=== PATIENT | male | born 1975 | race Caucasian/White ===

== ENCOUNTER → 2019-01-20 | Outpatient (CLI) | payer BC ==
--- NOTE | 2019-01-20 15:14 | CT ---
EXAMINATION TYPE: CT angio head DATE OF EXAM: 01/20/2019 HISTORY: GRANGER X4 DAYS COMPARISON: NONE CT DLP: 2432.6 mGycm. Automated Exposure Control for Dose Reduction was Utilized. TECHNIQUE: CTA scan of the neck is performed with IV Contrast, patient injected with 200 mL of Isovu e 370, axial images are obtained, coronal and sagittal reformatted images are reviewed. Three-D recon structed images are created on an independent workstation and reviewed. FINDINGS: Carotid/Vascular Structures: The vertebrobasilar system appears patent. There is a conventional branc h pattern of the posterior circulation. [place] is intact and appears patent. There is no an eurysmal outpouching seen of the intracranial vasculature nor hemodynamically significant stenosis. Other: On the unenhanced portion of the exam there is no evidence of acute intracranial hemorrhage, m idline shift or mass effect. Ventricles and peripheral sulci are symmetric without significant atroph y. Bo[place]-white matter differentiation is maintained. No suspicious extra axial fluid collection. Orbit s are symmetric and lenses are in place. Soft tissues are grossly unremarkable. There appears intact. There is circumferential moderate right maxillary mucosal thickening and mild ethmoid mucosal thicke aravind. Remainder the paranasal sinuses and mastoid air cells are well aerated. IMPRESSION: 1. No evidence of acute intracranial hemorrhage, midline shift or mass effect. No occlusion, hemodyna mically significant stenosis, dissection, or aneurysmal outpouching in the intracranial vasculature. 2. Circumferential mucosal thickening of the right maxillary sinus is moderate with mild ethmoid muco davon thickening.
== END | disposition home or self-care (01) ==
LOC: RADCTMAIN 14:18
PROVIDERS: ATTEND Family Medicine
DX: J32.0 Chronic maxillary sinusitis (principal); J32.2 Chronic ethmoidal sinusitis
CPT/HCPCS: 70496; Q9967

== ENCOUNTER → 2020-08-28 | Outpatient (CLI) | payer OTHER ==
--- NOTE | 2020-08-28 13:07 | FL ---
EXAMINATION TYPE: FL barium swallow DATE OF EXAM: 08/28/2020 CLINICAL HISTORY: History of substernal dysphasia and heartburn, which has since subsided after start ing Pantoprazole. Patient denies any current abdominal symptoms. TECHNIQUE: A double contrast esophagram is performed utilizing air and barium. A total of 1 minute 4 seconds of fluoroscopic time was utilized during procedure. Total images obtained: 14. COMPARISON: None FINDINGS: The esophagus shows normal motility and emptying into the stomach. No mucosal normality. T iny sliding hiatal hernia. No evidence of stricture. Moderate spontaneous gastroesophageal reflux was seen during real time performance of this study. IMPRESSION: 1. Tiny hiatal hernia. 2. Moderate spontaneous gastroesophageal reflux.
== END | disposition home or self-care (01) ==
LOC: RADUSWWP 09:46
PROVIDERS: ATTEND Family Medicine
DX: K21.9 Gastro-esophageal reflux disease without esophagitis (principal); K44.9 Diaphragmatic hernia without obstruction or gangrene
CPT/HCPCS: 74220

== ENCOUNTER 2023-07-31 11:22 | Emergency (ER) | payer OTHER ==
[2023-07-31 12:21] VITALS: RESP 20; TEMP 97.9
[2023-07-31] MEDS ORDERED: LORazepam 2 MG/ML INJ IV PRN ×3 (12:42)
[2023-07-31] MEDS ORDERED: THIAMINE 100 MG/ML 2 ML VIAL IM STA (12:42)
[2023-07-31] MEDS ORDERED: SODIUM CHLORIDE 0.9% 1,000 ML IV ONE (12:43)
[2023-07-31] MEDS ORDERED: ONDANSETRON 4 MG/2 ML VIAL IVP STA (12:43)
[2023-07-31 13:09] LABS: Basophils % (A) 1 %; Eosinophils # (A) 0.1 k/uL (0-0.7); Eosinophils % (A) 2 %; HCT 43.4 % (39.0-53.0); HGB 14.4 gm/dL (13.0-17.5); Lymphocytes # (A) 0.9 k/uL (1.0-4.8); Lymphocytes % (A) 19 %; MCH 30.9 pg (25.0-35.0); MCHC 33.1 g/dL (31.0-37.0); MCV 93.4 fL (80.0-100.0); Mean Platelet Volume 8.4; Monocytes # (A) 0.4 k/uL (0-1.0); Monocytes % (A) 8 %; Neutrophils # (A) 3.4 k/uL (1.3-7.7); Neutrophils % (A) 69 %; Platelet Count 254 k/uL (150-450); RBC 4.65 m/uL (4.30-5.90); WBC 4.9 k/uL (3.8-10.6)
[2023-07-31 13:18] LABS: ALT 42 U/L (4-49); AST 48 U/L (17-59); African American GFR (CKD) >90 (>60 ml/min/1.73 sqM); Albumin 4.4 g/dL (3.5-5.0); Alcohol <10 mg/dL; Alkaline Phosphatase 95 U/L (38-126); Anion Gap 9 mmol/L; Blood Urea Nitrogen 6 mg/dL (9-20); Calcium 9.2 mg/dL (8.4-10.2); Carbon Dioxide 24 mmol/L (22-30); Chloride 104 mmol/L (98-107); Glucose 101 mg/dL (74-99); Magnesium 1.5 mg/dL (1.6-2.3); Non-African American GFR(CKD) >90 (>60 ml/min/1.73 sqM); Potassium 4.4 mmol/L (3.5-5.1); Sodium 137 mmol/L (137-145); Total Bilirubin 0.6 mg/dL (0.2-1.3); Total Protein 7.2 g/dL (6.3-8.2)
[2023-07-31 13:48] VITALS: BP 137/82; PULSE 92
--- NOTE | 2023-07-31 14:47 | ED ---
General Adult HPI - General Chief complaint: Recheck/Abnormal Lab/Rx Stated complaint: withdrawl sympt Time Seen by Provider: 07/31/23 11:50 Source: patient Mode of arrival: ambulatory Limitations: no limitations - History of Present Illness Initial comments: 47-year-old male presents emergency department reporting withdrawal symptoms. He reports that he has a history of alcohol abuse. He has been sober for the past 2 years. Over the past 4 days the patient began drinking again. He has drank several bottles of wine per night. His last drink was yesterday at 10 PM. He woke up this morning and felt tremulous. He was having nausea with vomiting . He has never gone through DTs before. No history of withdrawal seizures. He has never attended rehab. He denies any injuries while intoxicated. No chest pain or shortness of breath. No other alleviating, precipitating or modifying factors - Related Data Previous Rx's Medication Instructions Recorded chlordiazePOXIDE HCl [Librium] See Taper PO Q6HR 4 Days #15 07/31/23 capsule Allergies Allergy/AdvReac Type Severity Reaction Status Date / Time No Known Allergies Allergy Verified 07/31/23 11:52 Review of Systems ROS Statement: Those systems with pertinent positive or pertinent negative responses have been documented in the HPI. ROS Other: All systems not noted in ROS Statement are negative. Past Medical History Past Medical History: GERD/Reflux, Hyperlipidemia, Hypertension, Thyroid Dis order History of Any Multi-Drug Resistant Organisms: None Reported Past Surgical History: No Surgical Hx Reported Past Psychological History: Anxiety Smoking Status: Never smoker Past Alcohol Use History: Abuse Past Drug Use History: None Reported General Exam Limitations: no limitations General appearance: alert, in no apparent distress, other (Patient is visibly tremulous) Head exam: Present: atraumatic, normocephalic, normal inspection Eye exam: Present: normal appearance, PERRL, EOMI. Absent: scleral icterus, conjunctival injection, periorbital swelling ENT exam: Present: normal exam, mucous membranes moist Neck exam: Present: normal inspection. Absent: tenderness, meningismus, lymphadenopathy Respiratory exam: Present: normal lung sounds bilaterally. Absent: respiratory distress, wheezes, rales, rhonchi, stridor Cardiovascular Exam: Present: tachycardia, normal heart sounds. Absent: systolic murmur, diastolic murmur, rubs, gallop, clicks GI/Abdominal exam: Present: soft, normal bowel sounds. Absent: distended, tenderness, guarding, rebound, rigid Extremities exam: Present: normal inspection, full ROM, normal capillary refill. Absent: tenderness, pedal edema, joint swelling, calf tenderness Back exam: Present: normal inspection Neurological exam: Present: alert, oriented X3, CN II-XII intact Psychiatric exam: Present: normal affect, normal mood Skin exam: Present: warm, dry, intact, normal color. Absent: rash Course Vital Signs 07/31/23 07/31/23 07/31/23 11:48 12:16 13:44 Temperature 98.3 F 97.9 F Pulse Rate 118 H 90 92 Respiratory 22 20 20 Rate Blood Pressure 126/87 129/113 137/82 O2 Sat by Pulse 99 97 95 Oximetry Medical Decision Making - Medical Decision Making Was pt. sent in by a medical professional or institution (SHANI Lopez, [employer]OR, urgent care, hospital, or intermediate...) When possible be specific @ -No Did you speak to anyone other than the patient for history (EMS, parent, family, police, friend...)? What history was obtained from this source @ -No Did you review nursing and triage notes (agree or disagree)? Why? @ -I reviewed and agree with nursing and triage notes Were old charts reviewed (outside hosp., previous admission, EMS record, old EKG, old radiological studies, urgent care reports/EKG's, intermediate records)? Report findings @ -No old charts were reviewed Differential Diagnosis (chest pain, altered mental status, abdominal pain women, abdominal pain men, vaginal bleeding, weakness, fever, dyspnea, syncope, headache, dizziness, GI bleed, back pain, seizure, CVA, palpatations, mental health, musculoskeletal)? @ -Alcohol intoxication, alcohol withdrawal, DTs EKG interpreted by me (3pts min.). @ -As above X-rays interpreted by me (1pt min.). @ -None done CT interpreted by me (1pt min.). @ -None done U/S interpreted by me (1pt. min.). @ -None done What testing was considered but not performed or refused? (CT, X-rays, U/S, labs)? Why? @ -None What meds were considered but not given or refused? Why? @ -[facility] protocol however patient will not be admitted to the hospital Did you discuss the management of the patient with other professionals (pr ofessionals i.e. , PA, [employer] SUPERVISOR, lab, RT, psych nurse, social service technician, screen printing press operator, teacher, sales officer, pillowcase cutter)? Give summary @ -No Was smoking cessation discussed for >3mins.? @ -No Was critical care preformed (if so, how long)? @ -No Were there social determinants of health that impacted care today? How? (Homelessness, low income, unemployed, alcoholism, drug addiction, transport ation, low edu. Level, literacy, decrease access to med. care, [facility], rehab)? @ -No Was there de-escalation of care discussed even if they declined (Discuss DNR or withdrawal of care, Hospice)? DNR status @ -No What co-morbidities impacted this encounter? (DM, HTN, Smoking, COPD, CAD, Cancer, CVA, ARF, Chemo, Hep., AIDS, mental health diagnosis, sleep apnea, morbid obesity)? @ -Alcohol abuse Was patient admitted / discharged? Hospital course, mention meds given and route, prescriptions, significant lab abnormalities, going to OR and other pertinent info. @ -Upon arrival patient was placed into room 2. Thorough history and physical exam was performed. Patient visibly tremulous. He was given 1 mg of Ativan. Laboratory studies are conducted. He is reevaluated and appears to be resting comfortably. I did discuss the diagnosis, differential treatment options. Recommend that the patient be admitted to the hospital for alcohol withdrawal however he wants to go home at this time. He is made aware of the risks which include permanent's ability and . Patient still agreeable to leaving with these risks. He will be placed on Librium. Instructed to take the medications as directed for withdrawal symptoms. Return for any new or worsening symptoms. Patient was agreeable to this plan and is discharged in stable condition Undiagnosed new problem with uncertain prognosis? @ -No Drug Therapy requiring intensive monitoring for toxicity (Heparin, Nitro, Insulin, Cardizem)? @ -No Were any procedures done? @ -No Diagnosis/symptom? @ -Acute alcohol withdrawal Acute, or Chronic, or Acute on Chronic? @ -Acute Uncomplicated (without systemic symptoms) or Complicated (systemic symptoms)? @ -Complicated Side effects of treatment? @ -No Exacerbation, Progression, or Severe Exacerbation? @ -No Poses a threat to life or bodily function? How? (Chest pain, [place], [place], pneumonia, PE, COPD, DKA, ARF, appy, cholecystitis, CVA, Diverticulitis, Homicidal, Suicidal, threat to staff... and all critical care pts) @ -Yes patient is aware that alcohol withdrawal can be life-threatening and lead to - Lab Data Result diagrams: 07/31/23 12:51 07/31/23 12:51 Lab Results 07/31/23 07/31/23 Range/Units 12:51 12:51 WBC 4.9 (3.8-10.6) k/uL RBC 4.65 (4.30-5.90) m/uL Hgb 14.4 (13.0-17.5) gm/dL Hct 43.4 (39.0-53.0) % MCV 93.4 (80.0-100.0) fL MCH 30.9 (25.0-35.0) pg MCHC 33.1 (31.0-37.0) g/dL RDW 14.0 (11.5-15.5) % Plt Count 254 (150-450) k/uL MPV 8.4 Neutrophils % 69 % Lymphocytes % 19 % Monocytes % 8 % Eosinophils % 2 % Basophils % 1 % Neutrophils # 3.4 (1.3-7.7) k/uL Lymphocytes # 0.9 L (1.0-4.8) k/uL Monocytes # 0.4 (0-1.0) k/uL Eosinophils # 0.1 (0-0.7) k/uL Basophils # 0.0 (0-0.2) k/uL Sodium 137 (137-145) mmol/L Potassium 4.4 (3.5-5.1) mmol/L Chloride 104 (98-107) mmol/L Carbon Dioxide 24 (22-30) mmol/L Anion Gap 9 mmol/L BUN 6 L (9-20) mg/dL Creatinine 0.53 L (0.66-1.25) mg/dL Est GFR (CKD-EPI)AfAm >90 (>60 ml/min/1.73 sqM) Est GFR (CKD-EPI)NonAf >90 (>60 ml/min/1.73 sqM) Glucose 101 H (74-99) mg/dL Calcium 9.2 (8.4-10.2) mg/dL Magnesium 1.5 L (1.6-2.3) mg/dL Total Bilirubin 0.6 (0.2-1.3) mg/dL AST 48 (17-59) U/L ALT 42 (4-49) U/L Alkaline Phosphatase 95 (38-126) U/L Total Protein 7.2 (6.3-8.2) g/dL Albumin 4.4 (3.5-5.0) g/dL Serum Alcohol <10 mg/dL Disposition Clinical Impression: Alcohol withdrawal Disposition: HOME SELF-CARE Condition: Stable Instructions (If sedation given, give patient instructions): Alcohol Withdrawal (ED) Additional Instructions: Take the medications as directed. Follow up with your doctor and return for any new or worsening symptoms Prescriptions: chlordiazePOXIDE HCl [Librium] See Taper PO Q6HR 4 Days #15 capsule Is patient prescribed a controlled substance at d/c from ED?: No Referrals: Araceli Reno DO [Primary Care Provider] - 1-2 days Time of Disposition: 14:58
[2023-08-01] MEDS ORDERED: THIAMINE 100 MG TAB PO SCH (09:00)
== END 2023-07-31 15:08 | disposition home or self-care (01) ==
LOC: EC 11:22
DX: F10.130 Alcohol abuse with withdrawal, uncomplicated (principal); I10 Essential (primary) hypertension; F41.9 Anxiety disorder, unspecified; Y90.0 Blood alcohol level of less than 20 mg/100 ml
CPT/HCPCS: 36415; 80053; 83735; 85025; 99284; 96374; 96375; 96361; 96372; G0480; J2060; J3411; J2405; 80320

== ENCOUNTER 2024-02-12 11:44 | Emergency (ER) | payer OTHER ==
--- NOTE | 2024-02-12 12:18 | ED ---
Chest Pain HPI - General Chief Complaint: Chest Pain Stated Complaint: Chest pain/Sob Time Seen by Provider: 02/12/24 12:01 Source: patient, RN notes reviewed Mode of arrival: ambulatory Limitations: no limitations - History of Present Illness Initial Comments: This is a 48 year old male who presents to the emergency department for chest pain. Patient states that this morning he had a syncopal episode around 8 AM. He did have a syncopal episode a couple of years ago, but nothing recently. Unsure how long he may have been unconscious for. Shortly after that he started to develop chest pain/pressure. This has since been persistent and seems to be getting worse. He has minor shortness of breath. Denies any radiation of pain. He has a history of a pulmonary embolus about 5 years ago. He is still taking Xarelto. Denies any personal or family history of cardiac issues. MD Complaint: chest pain - Related Data Home Medications Medication Instructions Recorded Confirmed Levothyroxine Sodium [Synthroid] 75 mcg PO DAILY 02/12/24 02/12/24 Ondansetron Odt [Zofran Odt] 4 mg PO Q12HR PRN 02/12/24 02/12/24 Pantoprazole Sodium [Protonix] 40 mg PO DAILY 02/12/24 02/12/24 Rivaroxaban [Xarelto] 20 mg PO DAILY@1200 02/12/24 02/12/24 Vilazodone HCl [Viibryd] 10 mg PO DAILY 02/12/24 02/12/24 busPIRone HCL 10 mg PO TID PRN 02/12/24 02/12/24 lisinopriL [Zestril] 10 mg PO DAILY 02/12/24 02/12/24 Previous Rx's Medication Instructions Recorded Ibuprofen [Motrin] 800 mg PO Q8H PRN #30 tab 02/12/24 methocarbamoL [Robaxin-750] 1,500 mg PO TID PRN #30 tab 02/12/24 Allergies Allergy/AdvReac Type Severity Reaction Status Date / Time No Known Allergies Allergy Verified 02/12/24 15:52 Review of Systems ROS Statement: Those systems with pertinent positive or pertinent negative responses have been documented in the HPI. ROS Other: All systems not noted in ROS Statement are negative. Past Medical History Past Medical History: GERD/Reflux, Hyperlipidemia, Hypertension, Thyroid Disorder History of Any Multi-Drug Resistant Organisms: None Reported Past Surgical History: No Surgical Hx Reported Past Psychological History: Anxiety Smoking Status: Never smoker Past Alcohol Use History: Abuse Past Drug Use History: None Reported General Exam Limitations: no limitations General appearance: alert, anxious Head exam: Present: atraumatic, normocephalic, normal inspection Respiratory exam: Present: normal lung sounds bilaterally. Absent: respiratory distress, wheezes, rales, rhonchi, stridor Cardiovascular Exam: Present: normal rhythm, tachycardia GI/Abdominal exam: Present: soft, normal bowel sounds. Absent: distended, tenderness, guarding, rebound, rigid Neurological exam: Present: alert, oriented X3, CN II-XII intact Psychiatric exam: Present: normal affect, normal mood Skin exam: Present: warm, dry, intact, normal color. Absent: rash Course Vital Signs 02/12/24 02/12/24 02/12/24 11:54 12:52 14:16 Temperature 98.4 F Pulse Rate 114 H 105 H 98 Respiratory 22 18 18 Rate Blood Pressure 133/88 132/69 109/68 O2 Sat by Pulse 99 99 97 Oximetry 02/12/24 02/12/24 15:00 17:10 Temperature Pulse Rate 80 80 Respiratory 18 14 Rate Blood Pressure 124/71 127/86 O2 Sat by Pulse 98 97 Oximetry Chest Pain MDM - MDM This is a 48 year old male who presents to the emergency department for chest pain. Was pt. sent in by a medical professional or institution? @ -No Did you speak to anyone other than the patient for history? @ -No Did you review nursing and triage notes? @ -Yes, and I agree, it is accurate with regards to the patient's symptoms. Were old charts reviewed? @ -No Differential Diagnosis? @ -Differential Chest Pain: Stable Angina, Unstable Angina, STEMI, NSTEMI Aortic Dissection, Pneumothorax, Musculoskeletal, Esophageal Spasm GERD, Cholecystitis, Pancreatitis, Zoster, this is not meant to be an all-inclusive list. EKG interpreted by me (3pts min.)? @ -EKG interpreted by me demonstrating the following: Sinus tachycardia. Ventricular rate 112 bpm, IL interval 136 ms, QRS duration 76 ms, QTc 398 ms. X-rays interpreted by me (1pt min.)? @ -Chest x-ray obtained, my interpretation identifies no localized consolidations or infiltrates. CT interpreted by me (1pt min.)? @ -Not obtained U/S interpreted by me (1pt. min.)? @ -Not obtained What testing was considered but not performed? (CT, X-rays, U/S, labs)? Why? @ -None What meds were considered but not given? Why? @ -None Did you discuss the management of the patient with other professionals? @ -No Did you reconcile home meds? @ -No Was smoking cessation discussed for >3mins.? @ -No Was critical care preformed (if so, how long)? @ -No Were there social determinants of health that impacted care today? How? (Homelessness, low income, unemployed, alcoholism, drug addiction, transportation, low edu. Level, literacy, decrease access to med. care, snf, rehab)? @ -No Was there de-escalation of care discussed even if they declined? (Discuss DNR or withdrawal of care, Hospice)? @ -No What co-morbidities impacted this encounter? (DM, HTN, Smoking, COPD, CAD, Cancer, CVA, Hep., AIDS, mental health diagnosis, sleep apnea, morbid obesity)? @ -HLD, HTN, alcohol abuse Was patient admitted / discharged? @ -Discharged. Lab work fairly unremarkable including a negative troponin and negative D-dimer. He did have a slightly low magnesium of 1.5 and was given 400 mg of magnesium oxide. Patient was shaking quite a bit on arrival, and he states that this is due to anxiety with the chest pain. He did have an alcohol level of 39, but states that this was not related to withdrawals. He was given a dose of nitroglycerin and aspirin without any relief in symptoms. He was s ubsequently given Toradol and Ativan, which he felt was beneficial. Repeat troponin obtained after 3 hours, which also remained negative. Patient was then comfortable with discharge home. Rx for Ibuprofen and Robaxin provided with dosing instructions reviewed. Patient discharged home in stable condition and advised to have close follow-up with his primary care provider. Undiagnosed new problem with uncertain prognosis? @ -None Drug Therapy requiring intensive monitoring for toxicity (Heparin, Nitro, Insulin, Cardizem)? @ -None Were any procedures done? @ -None Diagnosis/symptom? @ -Chest pain Acute, or Chronic, or Acute on Chronic? @ -Acute Uncomplicated (without systemic symptoms) or Complicated (systemic symptoms)? @ -Uncomplicated Side effects of treatment? @ -None Exacerbation, Progression, or Severe Exacerbation] @ -Not applicable Poses a threat to life or bodily function? @ -This will depend on the cause of his pain. Return precautions reviewed in depth, the patient is instructed to return to the emergency department with any new, worsening, or concerning symptoms. Patient verbalized understanding. This case was discussed in detail with the attending ED physician, Dr. Kumar. Presentation, findings, and treatment plan discussed in detail as well. Disposition Clinical Impression: Chest pain Disposition: HOME SELF-CARE Instructions (If sedation given, give patient instructions): Chest Pain (ED), Noncardiac Chest Pain (ED) Additional Instructions: Return to the emergency department with any new, worsening, or concerning symptoms. Alternate with Ibuprofen and Tylenol as needed for pain relief. You can take the Robaxin as 1-2 tablets up to 3-4 times daily. Be aware that this may make you drowsy. Follow up with your primary care provider in 1-2 days. Prescriptions: Ibuprofen [Motrin] 800 mg PO Q8H PRN #30 tab PRN Reason: Pain methocarbamoL [Robaxin-750] 1,500 mg PO TID PRN #30 tab PRN Reason: Pain Is patient prescribed a controlled substance at d/c from ED?: No Referrals: Araceli Reno DO [Primary Care Provider] - 1-2 days
[2024-02-12 12:22] LABS: Basophils # (A) 0.1 k/uL (0-0.2); Basophils % (A) 1 %; Eosinophils # (A) 0.2 k/uL (0-0.7); Eosinophils % (A) 2 %; HCT 44.9 % (39.0-53.0); HGB 14.6 gm/dL (13.0-17.5); Lymphocytes # (A) 1.5 k/uL (1.0-4.8); Lymphocytes % (A) 17 %; MCH 30.4 pg (25.0-35.0); MCHC 32.6 g/dL (31.0-37.0); MCV 93.2 fL (80.0-100.0); Mean Platelet Volume 8.1; Monocytes # (A) 0.4 k/uL (0-1.0); Monocytes % (A) 5 %; Neutrophils # (A) 6.2 k/uL (1.3-7.7); Neutrophils % (A) 73 %; Platelet Count 444 k/uL (150-450); RBC 4.81 m/uL (4.30-5.90); RDW 13.5 % (11.5-15.5); WBC 8.5 k/uL (3.8-10.6)
[2024-02-12 12:37] LABS: ALT 36 U/L (4-49); AST 30 U/L (17-59); African American GFR (CKD) >90 (>60 ml/min/1.73 sqM); Albumin 4.8 g/dL (3.5-5.0); Alcohol 39 mg/dL; Alkaline Phosphatase 76 U/L (38-126); Anion Gap 17 mmol/L; Blood Urea Nitrogen 9 mg/dL (9-20); Calcium 9.3 mg/dL (8.4-10.2); Carbon Dioxide 17 mmol/L (22-30); Chloride 107 mmol/L (98-107); Glucose 106 mg/dL (74-99); Magnesium 1.5 mg/dL (1.6-2.3); Non-African American GFR(CKD) >90 (>60 ml/min/1.73 sqM); Potassium 4.3 mmol/L (3.5-5.1); Sodium 141 mmol/L (137-145); Total Bilirubin 0.4 mg/dL (0.2-1.3); Total Protein 7.6 g/dL (6.3-8.2)
[2024-02-12 12:39] LABS: Partial Thromboplastin Time 24.8 sec (22.0-30.0)
[2024-02-12] MEDS: NITROGLYCERIN SL TABS 0.4 MG TAB SUBLINGUAL STA (12:44)
[2024-02-12] MEDS: ASPIRIN 81 MG PO STA (12:45)
[2024-02-12] MEDS: ONDANSETRON 4 MG/2 ML VIAL IVP STA (12:46)
[2024-02-12] MEDS: SODIUM CHLORIDE 0.9% 1,000 ML IV STA (12:47)
[2024-02-12] MEDS: MAGNESIUM OXIDE 400 MG TAB PO STA (13:00)
[2024-02-12] MEDS: KETOROLAC 15 MG/ML 1 ML VIAL IVP STA ×2 (13:01→16:09)
[2024-02-12] MEDS: LORazepam 2 MG/ML INJ IV STA ×2 (13:02→17:00)
[2024-02-12 13:10] VITALS: RESP 18
--- NOTE | 2024-02-12 13:17 | XR ---
EXAMINATION TYPE: XR chest 2V DATE OF EXAM: 02/12/2024 COMPARISON: 10/18/2013 INDICATION: Chest pain TECHNIQUE: Frontal and lateral views of the chest are obtained. FINDINGS: The heart size is normal. The pulmonary vasculature is normal. The lungs are clear. IMPRESSION: 1. No acute pulmonary process.
[2024-02-12] MEDS: ORPHENADRINE 30 MG/ML 2 ML VIAL IVP STA (16:11)
[2024-02-12] MEDS: MORPHINE SULFATE 2 MG/ML SYRINGE IVP STA (17:10)
[2024-02-12 17:40] VITALS: BP 134/82; PULSE 72; TEMP 98.2
== END 2024-02-12 17:50 | disposition home or self-care (01) ==
LOC: EC 11:44
DX: R07.89 Other chest pain (principal)
CPT/HCPCS: 36415; 93005; 85379; 80053; 83735; 84484; 85025; 85610; 85730; 71046; 99285; 96374; 96375 ×3; 96376 ×3; 96361; G0480; J2060; J2360; J2405; J2270; J1885; 80320

== ENCOUNTER 2024-02-23 11:21 | Observation (INO) | payer OTHER ==
[2024-02-23] MEDS ORDERED: LORazepam 2 MG/ML INJ IV PRN ×3 (11:50→16:32)
--- NOTE | 2024-02-23 11:54 | ED ---
General Adult HPI - General Chief complaint: Alcohol Stated complaint: Withdrawal Time Seen by Provider: 02/23/24 11:31 Source: patient Mode of arrival: ambulatory Limitations: no limitations - History of Present Illness Initial comments: Dictation was produced using [employer] dictation software. please excuse any grammatical, word or spelling errors. Chief Complaint: 48-year-old alcoholic male presents to the ER for alcohol withdrawals History of Present Illness: Patient 48-year-old male presents emergency department for alcohol withdrawals. Patient states he relapsed recently for the last several weeks has been drinking 3-4 bottles of wine. Patient has history of alcohol dependence. He has had intermittent episodes of sobriety however he states that he relapsed recently. Patient last alcohol intake was 11 PM last night. States that this morning he woke up feeling really shaky. Denies any ICU admissions for alcohol withdrawal in the past. No history of seizures The ROS documented in this emergency department record has been reviewed and confirmed by me. Those systems with pertinent positive or negative responses have been documented in the HPI. All other systems are other negative and/or noncontributory. - Related Data Home Medications Medication Instructions Recorded Confirmed Levothyroxine Sodium [Synthroid] 75 mcg PO HS 02/12/24 02/23/24 Ondansetron Odt [Zofran Odt] 4 mg PO Q12HR PRN 02/12/24 02/23/24 Pantoprazole Sodium [Protonix] 40 mg PO DAILY 02/12/24 02/23/24 Rivaroxaban [Xarelto] 20 mg PO DAILY@1200 02/12/24 02/23/24 Vilazodone HCl [Viibryd] 10 mg PO DAILY 02/12/24 02/23/24 busPIRone HCL 10 mg PO TID PRN 02/12/24 02/23/24 lisinopriL [Zestril] 10 mg PO DAILY 02/12/24 02/23/24 Sildenafil Citrate [Sildenafil] 60 - 100 mg PO DAILY PRN MDD 100mg 02/23/24 02/23/24 Previous Rx's Medication Instructions Recorded Ibuprofen [Motrin] 800 mg PO Q8H PRN #30 tab 02/12/24 methocarbamoL [Robaxin-750] 1,500 mg PO TID PRN #30 tab 02/12/24 Allergies Allergy/AdvReac Type Severity Reaction Status Date / Time No Known Allergies Allergy Verified 02/23/24 12:40 Review of Systems ROS Statement: Those systems with pertinent positive or pertinent negative responses have been documented in the HPI. ROS Other: All systems not noted in ROS Statement are negative. Past Medical History Past Medical History: GERD/Reflux, Hyperlipidemia, Hypertension, Thyroid Disorder History of Any Multi-Drug Resistant Organisms: None Reported Past Surgical History: No Surgical Hx Reported Past Psychological History: Anxiety Smoking Status: Never smoker Past Alcohol Use History: Abuse Past Drug Use History: None Reported General Exam - General Exam Comments Initial Comments: PHYSICAL EXAM: General Impression: Alert and oriented x3, tremulous HEENT: Normocephalic atraumatic, extra-ocular movements intact, pupils equal and reactive to light bilaterally, mucous membranes moist. Cardiovascular: Heart regular rate and rhythm Chest: Able to complete full sentences, no retractions, no tachypnea Abdomen: abdomen soft, non-tender, non-distended, no organomegaly Musculoskeletal: Pulses present and equal in all extremities, no peripheral edema Motor: no focal deficits noted Neurological: CN II-XII grossly intact, no focal motor or sensory deficits noted Skin: Intact with no visualized rashes Psych: Anxious Limitations: no limitations Course Vital Signs 02/23/24 11:27 Temperature 98.5 F Pulse Rate 105 H Respiratory 18 Rate Blood Pressure 139/86 O2 Sat by Pulse 96 Oximetry Medical Decision Making - Medical Decision Making Was pt. sent in by a medical professional or institution (SHANI Lopez, REGISTERED DENTAL HYGIENIST, urgent care, hospital, or halfway...) When possible be specific @ -No Did you speak to anyone other than the patient for history (EMS, parent, family, police, friend...)? What history was obtained from this source @ -No Did you review nursing and triage notes (agree or disagree)? Why? @ -I reviewed and agree with nursing and triage notes Were old charts reviewed (outside hosp., previous admission, EMS record, old EKG, old radiological studies, urgent care reports/EKG's, halfway records)? Report findings @ -No old charts were reviewed Differential Diagnosis (chest pain, altered mental status, abdominal pain women, abdominal pain men, vaginal bleeding, musculoskeletal, weakness, fever, dyspnea, syncope, headache, dizziness, GI bleed, back pain, seizure, CVA, palpatations, mental health)? @ -Not applicable EKG interpreted by me (3pts min.). @ -None done X-rays interpreted by me (1pt min.). @ -None done CT interpreted by me (1pt min.). @ -None done U/S interpreted by me (1pt. min.). @ -None done What testing was considered but not performed or refused? (CT, X-rays, U/S, labs)? Why? @ -None What meds were considered but not given or refused? Why? @ -None Did you discuss the management of the patient with other professionals (professionals i.e. , PA, REGISTERED DENTAL HYGIENIST, lab, RT, psych nurse, director social service, veterinary toxicologist, teacher, safety patrol officer, shelter case manager)? Give summary @ -Case discussed with hospitalist for admission Was smoking cessation discussed for >3mins.? @ -No Was critical care preformed (if so, how long)? @ -No Were there social determinants of health that impacted care today? How? (Homelessness, low income, unemployed, alcoholism, drug addiction, transportation, low edu. Level, literacy, decrease access to med. care, shelter, rehab)? @ -No Was there de-escalation of care discussed even if they declined (Discuss DNR or withdrawal of care, Hospice)? DNR status @ -No What co-morbidities impacted this encounter? (DM, HTN, Smoking, COPD, CAD, Cancer, CVA, ARF, Chemo, Hep., AIDS, mental health diagnosis, sleep apnea, morbid obesity)? @ -None Was patient admitted / discharged? Hospital course, mention meds given and route, prescriptions, significant lab abnormalities, going to OR and other pertinent info. @ -48-year-old male presents emergency department for alcohol withdrawal. Vital signs upon arrival shows tachycardia 105, rest of vital signs within acceptable limits. Patient extremely tremulous and anxious at the bedside. Laboratory evaluation obtained. Labs are within acceptable limits. Patient given Ativan will be admitted for inpatient treatment of alcohol withdrawal. Undiagnosed new problem with uncertain prognosis? @ -No Drug Therapy requiring intensive monitoring for toxicity (Heparin, Nitro, Insulin, Cardizem)? @ -No Were any procedures done? @ -No Diagnosis/symptom? Acute, or Chronic, or Acute on Chronic? Uncomplicated (without systemic symptoms) or Complicated (systemic symptoms)? @ -Alcohol withdrawal Side effects of treatment? @ -No Exacerbation, Progression, or Severe Exacerbation? @ -No Poses a threat to life or bodily function? How? (Chest pain, USA, MD, pneumonia, PE, COPD, DKA, ARF, appy, cholecystitis, CVA, Diverticulitis, Homicidal, Suicidal, threat to staff... and all critical care pts) @ -No - Lab Data Result diagrams: 02/23/24 12:23 02/23/24 12: Lab Results 02/23/24 02/23/24 Range/Units 12:23 12:23 WBC 7.0 (3.8-10.6) k/uL RBC 4.94 (4.30-5.90) m/uL Hgb 15.0 (13.0-17.5) gm/dL Hct 45.5 (39.0-53.0) % MCV 92.2 (80.0-100.0) fL MCH 30.4 (25.0-35.0) pg MCHC 33.0 (31.0-37.0) g/dL RDW 13.6 (11.5-15.5) % Plt Count 335 (150-450) k/uL MPV 8.5 Neutrophils % 71 % Lymphocytes % 16 % Monocytes % 7 % Eosinophils % 2 % Basophils % 1 % Neutrophils # 5.0 (1.3-7.7) k/uL Lymphocytes # 1.1 (1.0-4.8) k/uL Monocytes # 0.5 (0-1.0) k/uL Eosinophils # 0.2 (0-0.7) k/uL Basophils # 0.1 (0-0.2) k/uL Sodium 140 (137-145) mmol/L Potassium 5.3 H (3.5-5.1) mmol/L Chloride 109 H (98-107) mmol/L Carbon Dioxide 20 L (22-30) mmol/L Anion Gap 11 mmol/L BUN 22 H (9-20) mg/dL Creatinine 0.66 (0.66-1.25) mg/dL Est GFR (CKD-EPI)AfAm >90 (>60 ml/min/1.73 sqM) Est GFR (CKD-EPI)NonAf >90 (>60 ml/min/1.73 sqM) Glucose 116 H (74-99) mg/dL Calcium 9.9 (8.4-10.2) mg/dL Magnesium 1.8 (1.6-2.3) mg/dL Serum Alcohol <10 mg/dL Disposition Clinical Impression: Alcohol withdrawal syndrome Disposition: ADMITTED IP TO THIS HOSP Condition: Fair Referrals: Araceli Reno DO [Primary Care Provider] - 1-2 days Decision Time: 13:39
[2024-02-23] MEDS: LORazepam 2 MG/ML INJ IV STA (12:19)
[2024-02-23] MEDS: THIAMINE 100 MG/ML 2 ML VIAL IM STA (12:19)
[2024-02-23 12:30] LABS: Basophils # (A) 0.1 k/uL (0-0.2); Basophils % (A) 1 %; Eosinophils # (A) 0.2 k/uL (0-0.7); Eosinophils % (A) 2 %; HCT 45.5 % (39.0-53.0); Lymphocytes # (A) 1.1 k/uL (1.0-4.8); Lymphocytes % (A) 16 %; MCH 30.4 pg (25.0-35.0); MCV 92.2 fL (80.0-100.0); Mean Platelet Volume 8.5; Monocytes # (A) 0.5 k/uL (0-1.0); Monocytes % (A) 7 %; Neutrophils % (A) 71 %; Platelet Count 335 k/uL (150-450); RBC 4.94 m/uL (4.30-5.90); RDW 13.6 % (11.5-15.5)
[2024-02-23 12:42] LABS: African American GFR (CKD) >90 (>60 ml/min/1.73 sqM); Alcohol <10 mg/dL; Anion Gap 11 mmol/L; Blood Urea Nitrogen 22 mg/dL (9-20); Calcium 9.9 mg/dL (8.4-10.2); Carbon Dioxide 20 mmol/L (22-30); Chloride 109 mmol/L (98-107); Glucose 116 mg/dL (74-99); Magnesium 1.8 mg/dL (1.6-2.3); Non-African American GFR(CKD) >90 (>60 ml/min/1.73 sqM); Potassium 5.3 mmol/L (3.5-5.1); Sodium 140 mmol/L (137-145)
[2024-02-23] MEDS ORDERED: NALOXONE 0.4 MG/ML 1 ML VIAL IV PRN (13:30)
[2024-02-23] MEDS: SODIUM CHLORIDE 0.9% 1,000 ML IV SCH (13:57)
[2024-02-23] MEDS: LORazepam 2 MG/ML INJ IV PRN (16:51)
[2024-02-24] MEDS: ONDANSETRON 4 MG/2 ML VIAL IVP PRN (07:59)
[2024-02-24 08:05] VITALS: RESP 20
[2024-02-24] MEDS: THIAMINE 100 MG TAB PO SCH (09:23)
[2024-02-24] MEDS: FOLIC ACID 1 MG TAB PO SCH (09:24)
[2024-02-24] MEDS: PANTOPRAZOLE 40 MG/10 ML VIAL IVP SCH (09:36)
[2024-02-24] MEDS: Vilazodone Hcl [Viibryd] 10 MG Tablet PO SCH (09:42)
[2024-02-24 09:43] LABS: African American GFR (CKD) >90 (>60 ml/min/1.73 sqM); Anion Gap 5 mmol/L; Blood Urea Nitrogen 15 mg/dL (9-20); Carbon Dioxide 24 mmol/L (22-30); Chloride 106 mmol/L (98-107); Glucose 130 mg/dL (74-99); Magnesium 1.9 mg/dL (1.6-2.3); Non-African American GFR(CKD) >90 (>60 ml/min/1.73 sqM); Potassium 4.5 mmol/L (3.5-5.1); Sodium 135 mmol/L (137-145)
[2024-02-24] MEDS: lisinopriL 10 MG TAB PO SCH (09:45)
[2024-02-24] MEDS: busPIRone HCl 10 MG TAB PO PRN (09:45)
[2024-02-24] MEDS: RIVAROXABAN 20 MG TAB PO SCH (11:30)
[2024-02-24 13:40] VITALS: BP 144/84; PULSE 69; TEMP 98.1
--- NOTE | 2024-02-24 14:01 | P.HPIM ---
History of Present Illness H&P Date: 02/24/24 Chief Complaint: Alcohol withdrawal History and Physical and Discharge Summary: This is a 48-year-old gentleman presented to the ER with complaints of alcohol withdrawal accompanied by shakes, sweats, hot flashes, nausea. Denies seizures or seizure history. Reports he relapsed, had quit alcohol about 3-1/2 years ago. Previously attempted naltrexone, Antabuse. Over the last 6 days he has been drinking 3-4 bottles of wine daily. 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 Afebrile, normal WBC, hematology panel unremarkable. Electrolytes, renal function within normal limits. Serum alcohol level less than 10. Denies chest pain, palpitations or shortness of breath. Received IV fluid hydration, CIWA protocol initiated in the ER. Review of Systems ROS Statement: Those systems with pertinent positive or pertinent negative responses have been documented in the HPI. ROS Other: All systems not noted in ROS Statement are negative. Past Medical History Past Medical History: GERD/Reflux, Hyperlipidemia, Hypertension, Thyroid Disorder History of Any Multi-Drug Resistant Organisms: None Reported Past Surgical History: No Surgical Hx Reported Past Psychological History: Anxiety Smoking Status: Former smoker Past Alcohol Use History: Abuse Past Drug Use History: None Reported Medications and Allergies Home Medications Medication Instructions Recorded Confirmed Type Ibuprofen [Motrin] 800 mg PO Q8H PRN #30 tab 02/12/24 02/23/24 Rx Levothyroxine Sodium [Synthroid] 75 mcg PO HS 02/12/24 02/23/24 History Ondansetron Odt [Zofran ODT] 4 mg PO Q12HR PRN 02/12/24 02/23/24 History Pantoprazole Sodium [Protonix] 40 mg PO DAILY 02/12/24 02/23/24 History Rivaroxaban [Xarelto] 20 mg PO DAILY@1200 02/12/24 02/23/24 History Vilazodone HCl [Viibryd] 10 mg PO DAILY 02/12/24 02/23/24 History busPIRone HCL 10 mg PO TID PRN 02/12/24 02/23/24 History lisinopriL [Zestril] 10 mg PO DAILY 02/12/24 02/23/24 History methocarbamoL [Robaxin-750] 1,500 mg PO TID PRN #30 tab 02/12/24 02/23/24 Rx Sildenafil Citrate 60 - 100 mg PO DAILY PRN MDD 100mg 02/23/24 02/23/24 History Folic Acid 1 mg PO DAILY tab 02/24/24 Rx LORazepam [Ativan] See Taper PO DIRECTED 3 Days #6 02/24/24 Rx tab Thiamine [Vitamin B-1] 100 mg PO DAILY tab 02/24/24 Rx Allergies Allergy/AdvReac Type Severity Reaction Status Date / Time No Known Allergies Allergy Verified 02/23/24 12:40 Physical Exam Vitals: Vital Signs Temp Pulse Pulse Resp BP BP Pulse Ox 02/24/24 07:13 97.4 F L 63 20 114/73 96 02/24/24 02:13 97.7 F 64 16 111/73 98 02/23/24 19:36 98.6 F 76 16 123/76 99 02/23/24 15:30 98.6 F 86 16 159/82 95 02/23/24 13:50 102 H 18 129/82 100 02/23/24 11:27 98.5 F 105 H 18 139/86 96 Intake and Output 02/23/24 02/24/24 02/24/24 22:59 06:59 14:59 Other: Voiding Method Toilet # Voids 1 2 PHYSICAL EXAM: VITAL SIGNS: [As above] GENERAL: Alert and oriented x 3, sitting up in bed, positive tremors, recent CIWA score 8 HEENT: Normocephalic, atraumatic conjunctivae normal. eyes normal. No scleral icterus NECK: Supple, no JVD. No thyroid enlargement. No LNs CARDIOVASCULAR: S1, S2 regular.. No murmur RESPIRATION: Unlabored, equal air entry ,breath sounds diminished in the bases. No rhonchi or crackles. No bronchial breathing. ABDOMEN: Soft, nondistended, nontender . No guarding. no masses palpable. No ascites, No hepatosplenomegaly.Bowel sounds heard. LEGS: No edema. no swelling PSYCHIATRY: Alert and oriented X3, mood and affect normal. NERVOUS SYSTEM: Cranial N 2-12 grossly normal. Positive tremors , positive flap test, no focal deficits. Strength and sensation grossly intact. Skin: Warm and dry, no rash Results CBC & Chem 7: 02/23/24 12:23 02/24/24 09:03 Labs: Abnormal Lab Results - Last 24 Hours (Table) 02/23/24 Range/Units 12:23 Potassium 5.3 H (3.5-5.1) mmol/L Chloride 109 H (98-107) mmol/L Carbon Dioxide 20 L (22-30) mmol/L BUN 22 H (9-20) mg/dL Glucose 116 H (74-99) mg/dL Thrombosis Risk Factor Assmnt - Choose All That Apply Any of the Below Risk Factors Present?: Yes Each Factor Represents 1 point: Age 41-60 years, Obesity (BMI >25) Each Risk Factor Represents 3 Points: History of DVT/PE Thrombosis Risk Factor Assessment Total Risk Factor Score: 5 Thrombosis Risk Factor Assessment Level: High Risk Assessment and Plan Assessment: Alcohol withdrawal Alcohol abuse Morbid obesity, BMI 33 Gastroesophageal reflux disease Hypertension Former nicotine dependence PE reports 5 years ago secondary to right leg trauma with reported genetic testing; 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 Maintain IV fluid hydration, CIWA protocol. Patient may be discharged home later today pending CIWA score less than 5, in a stable condition with guarded prognosis. Discharge Medication List Ibuprofen [Motrin] 800 mg PO Q8H PRN #30 tab 02/12/24 [Rx] Levothyroxine Sodium [Synthroid] 75 mcg PO HS 02/12/24 [History] Ondansetron Odt [Zofran ODT] 4 mg PO Q12HR PRN 02/12/24 [History] Pantoprazole Sodium [Protonix] 40 mg PO DAILY 02/12/24 [History] Rivaroxaban [Xarelto] 20 mg PO DAILY@1200 02/12/24 [History] Vilazodone HCl [Viibryd] 10 mg PO DAILY 02/12/24 [History] busPIRone HCL 10 mg PO TID PRN 02/12/24 [History] lisinopriL [Zestril] 10 mg PO DAILY 02/12/24 [History] methocarbamoL [Robaxin-750] 1,500 mg PO TID PRN #30 tab 02/12/24 [Rx] Sildenafil Citrate 60 - 100 mg PO DAILY PRN MDD 100mg 02/23/24 [History] Folic Acid 1 mg PO DAILY tab 02/24/24 [Rx] LORazepam [Ativan] See Taper PO DIRECTED 3 Days #6 tab 02/24/24 [Rx] Thiamine [Vitamin B-1] 100 mg PO DAILY tab 02/24/24 [Rx] The impression and plan of care has been dictated as directed. : I performed a history and examination of this patient, discussed the same with the dictator. I agree with the dictator's note ,documented as a scribe. Any additional findings or plans will be noted.
[2024-02-24] MEDS ORDERED: LEVOTHYROXINE 75 MCG TAB PO SCH (21:00)
[2024-02-25] MEDS ORDERED: PANTOPRAZOLE 40 MG TABLET PO SCH (07:30)
== END 2024-02-24 14:47 | disposition home or self-care (01) ==
LOC: EC 11:21 → 4SSUR 13:38
PROVIDERS: ADMIT Family Medicine; ATTEND Family Medicine
DX: F10.239 Alcohol dependence with withdrawal, unspecified (principal); I10 Essential (primary) hypertension; K21.9 Gastro-esophageal reflux disease without esophagitis; E66.01 Morbid (severe) obesity due to excess calories; Z68.33 Body mass index [BMI] 33.0-33.9, adult; Y90.0 Blood alcohol level of less than 20 mg/100 ml; F41.9 Anxiety disorder, unspecified; Z79.01 Long term (current) use of anticoagulants; Z79.890 Hormone replacement therapy; Z79.899 Other long term (current) drug therapy; Z86.711 Personal history of pulmonary embolism; Z87.891 Personal history of nicotine dependence
CPT/HCPCS: 96376 ×2; 96375; 96372; 96374; 99285; 36415; 80048 ×2; 83735 ×2; 85025; G0378 ×2; G0480; J2060 ×2; J3411; J2405; C9113; 80320

== ENCOUNTER → 2024-04-06 | Outpatient (CLI) | payer OTHER ==
--- NOTE | 2024-04-06 18:54 | MR ---
EXAMINATION TYPE: MR brain wo con DATE OF EXAM: 04/06/2024 5:18 PM CLINICAL INDICATION:Male, 48 years old with history of R55 SYNCOPE; PHH, 3 syncopes in two week time frame COMPARISON: 02/01/2019. TECHNIQUE: Multi planar, multi sequence imaging was performed through the brain including: T1, T2, In version recovery, Diffusion weighted imaging, and gradient echo imaging. No gadolinium was given. 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 The summers-white junctions, ventricular system, basal cisterns appear unremarkable. . Midline structures show no abn ormality. Diffusion-weighted imaging shows no evidence of restricted diffusion. The susceptibility we ighted images do not reveal any evidence for micro-hemorrhage. The bone marrow signal is within normal limits. Paranasal sinuses and mastoid air cells: No significant paranasal sinus disease. Visualized orbits: Orbital contents are intact. IMPRESSION: No evidence of intracranial mass or acute/subacute infarct.
== END | disposition home or self-care (01) ==
LOC: RADMRIMAIN 15:40
PROVIDERS: ATTEND Family Medicine
DX: R55 Syncope and collapse (principal)
CPT/HCPCS: 70551

== ENCOUNTER → 2024-04-12 | Outpatient (CLI) | payer OTHER ==
--- NOTE | 2024-04-12 21:50 | EEG ---
ELECTROENCEPHALOGRAM REPORT PREAMBLE: This is a 48-year-old male with a syncopal spell. The patient had 3 unwitnessed syncope. With one of the falls, the patient broke 2 ribs because of the fall. He was slightly disoriented after all 3 events. No tongue bite or loss of control of urine. CURRENT MEDICATIONS: Levothyroxine, Xarelto, BuSpar, Protonix, magnesium, Viibryd. EEG FINDINGS: This is a 21-channel digital EEG recorded with video component, utilizing 10/20 international system with referential and bipolar montages. Background consists of well developed, well regulated moderate voltage activity in 9 to 10 hertz alpha. Background is posterior dominant and reactive to eye opening and closing. Photic stimulation was not done. Hyperventilation was not done. Different stages of sleep were not seen. No focal or generalized epileptiform activity was seen. EKG channel showed no obvious arrhythmia. IMPRESSION: This is a normal awake EEG. No focal, lateralized, or epileptiform activity was seen. Normal EEG does not rule out seizure disorder. If your suspicion for seizure is high, suggest prolonged, sleep-deprived EEG. MMODL / IJN: [id number] /
== END ==
LOC: NEUROMAIN 07:41
PROVIDERS: ATTEND Family Medicine
DX: R55 Syncope and collapse (principal)
CPT/HCPCS: 95816

== ENCOUNTER 2024-07-10 18:39 | Observation (INO) | payer OTHER ==
--- NOTE | 2024-07-10 19:49 | ED ---
Chest Pain HPI - General Chief Complaint: Chest Pain Stated Complaint: Chest Pain Time Seen by Provider: 07/10/24 18:56 Source: patient, RN notes reviewed Mode of arrival: ambulatory Limitations: no limitations - History of Present Illness Initial Comments: 38-year-old male with a history of anxiety, hypothyroidism, hypertension, presents emergency department chief complaint of central chest pain that began at 05 100 this morning. Patient states the pressure in his chest has been constant over this time and is described as a squeezing sensation. He denies radiation of pain. He states that he had an episode of vomiting this morning and has been feeling nauseous as well. He is denying shortness of breath, difficulty breathing, headaches, blurry or double vision. Patient denies recent prolonged travel, calf swelling or pain or history of clotting disorders. Patient does have a history of PE 5 years ago and is on Xarelto. - Related Data Home Medications Medication Instructions Recorded Confirmed Levothyroxine Sodium [Synthroid] 75 mcg PO DAILY 02/12/24 07/10/24 Pantoprazole Sodium [Protonix] 40 mg PO DAILY 02/12/24 07/10/24 Rivaroxaban [Xarelto] 20 mg PO DAILY 02/12/24 07/10/24 busPIRone HCL 10 mg PO BID 02/12/24 07/10/24 lisinopriL [Zestril] 10 mg PO DAILY 02/12/24 07/10/24 Sildenafil Citrate 60 - 100 mg PO DAILY PRN MDD 100mg 02/23/24 07/10/24 Vilazodone HCl [Viibryd] 20 mg PO DAILY 07/10/24 07/10/24 busPIRone HCl [Buspar] 10 mg PO DAILY PRN 07/10/24 07/10/24 Allergies Allergy/AdvReac Type Severity Reaction Status Date / Time No Known Allergies Allergy Verified 07/10/24 20:51 Review of Systems ROS Statement: Those systems with pertinent positive or pertinent negative responses have been documented in the HPI. ROS Other: All systems not noted in ROS Statement are negative. Past Medical History Past Medical History: GERD/Reflux, Hyperlipidemia, Hypertension, Thyroid Disorder History of Any Multi-Drug Resistant Organisms: None Reported Past Surgical History: No Surgical Hx Reported Past Psychological History: Anxiety Smoking Status: Former smoker Past Alcohol Use History: Abuse Past Drug Use History: None Reported General Exam Limitations: no limitations General appearance: alert, in no apparent distress Head exam: Present: atraumatic, normocephalic, normal inspection Eye exam: Present: normal appearance, PERRL, EOMI. Absent: scleral icterus, conjunctival injection, periorbital swelling ENT exam: Present: normal exam, mucous membranes moist Neck exam: Present: normal inspection. Absent: tenderness, meningismus, lymphadenopathy Respiratory exam: Present: normal lung sounds bilaterally. Absent: respiratory distress, wheezes, rales, rhonchi, stridor Cardiovascular Exam: Present: normal rhythm, tachycardia, normal heart sounds. Absent: systolic murmur, diastolic murmur, rubs, gallop, clicks GI/Abdominal exam: Present: soft, normal bowel sounds. Absent: distended, tenderness, guarding, rebound, rigid Extremities exam: Present: normal inspection, full ROM, normal capillary refill. Absent: tenderness, pedal edema, joint swelling, calf tenderness Psychiatric exam: Present: normal affect, anxious Course Vital Signs 07/10/24 07/10/24 07/10/24 18:45 20:11 20:19 Temperature 98.4 F Pulse Rate 137 H 133 H 140 H Pulse Rate [ Syrup Maker Cook ] Respiratory 24 20 22 Rate Blood Pressure 143/82 143/108 138/86 O2 Sat by Pulse 98 96 96 Oximetry 07/10/24 07/10/24 07/10/24 20:24 20:42 21:00 Temperature Pulse Rate 140 H 120 H 117 H Pulse Rate [ Syrup Maker Cook ] Respiratory 22 22 20 Rate Blood Pressure 90/64 106/67 118/78 O2 Sat by Pulse 97 99 99 Oximetry 07/10/24 07/10/24 07/10/24 21:37 21:41 21:45 Temperature Pulse Rate 109 H 106 H Pulse Rate [ 114 H Syrup Maker Cook ] Respiratory 18 20 Rate Blood Pressure 134/82 O2 Sat by Pulse 97 Oximetry 07/10/24 07/11/24 07/11/24 23:00 00:00 01:00 Temperature Pulse Rate 112 H 129 H 128 H Pulse Rate [ Syrup Maker Cook ] Respiratory 16 20 16 Rate Blood Pressure 140/92 144/99 126/86 O2 Sat by Pulse 97 99 98 Oximetry Chest Pain MDM - MDM Was pt. sent in by a medical professional or institution (, PA, COMMUNICATIONS ELECTRICIAN SUPERVISOR, urgent care, hospital, or detention...) When possible be specific @ -No Did you speak to anyone other than the patient for history (EMS, parent, family, police, friend...)? What history was obtained from this source @ -No Did you review nursing and triage notes (agree or disagree)? Why? @ -I reviewed and agree with nursing and triage notes Were old charts reviewed (outside hosp., previous admission, EMS record, old EKG, old radiological studies, urgent care reports/EKG's, detention records)? Report findings @ -Patient's previous emergency department visit where he was admitted for acute alcohol withdrawal. Differential Diagnosis (chest pain, altered mental status, abdominal pain women, abdominal pain men, vaginal bleeding, weakness, fever, dyspnea, syncope, headache, dizziness, GI bleed, back pain, seizure, CVA, palpatations, mental health, musculoskeletal)? @ -Differential Chest Pain: Stable Angina, Unstable Angina, STEMI, NSTEMI Aortic Dissection, Pneumothorax, Musculoskeletal, Esophageal Spasm GERD, Cholecystitis, Pancreatitis, Zoster, this is not meant to be an all-inclusive list. EKG interpreted by me (3pts min.). @ -@1856, sinus tachycardia with a ventricular rate of 128, MN interval 132, QTc 386. No acute signs of ischemia. X-rays interpreted by me (1pt min.). @ -Chest x-ray no acute cardiopulmonary process or disease CT interpreted by me (1pt min.). @ -None done U/S interpreted by me (1pt. min.). @ -None done What testing was considered but not performed or refused? (CT, X-rays, U/S, labs)? Why? @ -None What meds were considered but not given or refused? Why? @ -None Did you discuss the management of the patient with other professionals (professionals i.e. , PA, COMMUNICATIONS ELECTRICIAN SUPERVISOR, lab, RT, psych nurse, case management social worker, crime scene specialist, teacher, fundraising officer, manager case management)? Give summary @ -spoke with Dr. Calzada, in regard to admission to observation for echo and for symptomatic chest pain and sinus tachycardia. Patient is accepted Was smoking cessation discussed for >3mins.? @ -No Was critical care preformed (if so, how long)? @ -No Were there social determinants of health that impacted care today? How? (Homel essness, low income, unemployed, alcoholism, drug addiction, transportation, low edu. Level, literacy, decrease access to med. care, care home, rehab)? @ -No Was there de-escalation of care discussed even if they declined (Discuss DNR or withdrawal of care, Hospice)? DNR status @ -No What co-morbidities impacted this encounter? (DM, HTN, Smoking, COPD, CAD, Cancer, CVA, ARF, Chemo, Hep., AIDS, mental health diagnosis, sleep apnea, morbid obesity)? @ -None Was patient admitted / discharged? Hospital course, mention meds given and route, prescriptions, significant lab abnormalities, going to OR and other pertinent info. @ -admitted. 48-year-old male with chest pain. On examination patient is noted to be tachycardic with a sinus rhythm ranging in the 110s to the 120s. Patient is also mildly tremulous on examination states that he is feeling extremely anxious with symptoms. Chest pain is not reproducible on palpation and patient is in no acute signs of distress. CBC reveals mild leukocytosis of 11.9 and neutrophilia of 8.6 likely reactive secondary to episodes of emesis that occurred today. CBC mild acidosis with a CO2 of 18 likely hypoventilatory and respiratory in nature. Troponin less than 0.012. Patient is provided with Ativan that has significantly decreased his tremors. Patient provide including D-dimer within normal limits. Patient's repeat troponin less than 0.012 Patient will be admitted patient with cardiology on consult for echocardiogram and further evaluation with cardiology due to chest pain and tachycardia. Additionally, patient's history of alcohol withdrawal he replaced on [facility] protocol for precautionary of potential alcohol withdrawal. Discussed with Dr. Toussaint Undiagnosed new problem with uncertain prognosis? @ -No Drug Therapy requiring intensive monitoring for toxicity (Heparin, Nitro, Insulin, Cardizem)? @ -No Were any procedures done? @ -No Diagnosis/symptom? @ -Chest pain, sinus tachycardia Acute, or Chronic, or Acute on Chronic? @ -Acute Uncomplicated (without systemic symptoms) or Complicated (systemic symptoms)? @ -complicated Side effects of treatment? @ -No Exacerbation, Progression, or Severe Exacerbation? @ -No Poses a threat to life or bodily function? How? (Chest pain, [place], [place], pneumonia, PE, COPD, DKA, ARF, appy, cholecystitis, CVA, Diverticulitis, Homicidal, Suicidal, threat to staff... and all critical care pts) @ -No Disposition Clinical Impression: Chest pain, Sinus tachycardia Disposition: ADMITTED IP TO THIS HOSP Condition: Good Is patient prescribed a controlled substance at d/c from ED?: No Decision to Admit Reason: Admit from EC Decision Date: 07/11/24 Decision Time: 00:29
[2024-07-10] MEDS: ASPIRIN 81 MG PO STA (20:11)
[2024-07-10] MEDS: NITROGLYCERIN SL TABS 0.4 MG TAB SUBLINGUAL STA ×3 (20:13→20:35)
[2024-07-10] MEDS: ONDANSETRON 4 MG/2 ML VIAL IVP STA (20:15)
--- NOTE | 2024-07-10 20:22 | XR ---
EXAMINATION TYPE: XR chest 2V DATE OF EXAM: 07/10/2024 8:06 PM CLINICAL INDICATION: Male, 48 years old with history of Chest Pain; COMPARISON: Chest radiographs from 01/16/2024 TECHNIQUE: XR chest 2V Frontal view of the chest. FINDINGS: Lungs/Pleura: There is no evidence of pleural effusion, focal consolidation, or pneumothorax. Pulmonary vascularity: Unremarkable. Heart/mediastinum: Cardiomediastinal silhouette is unremarkable. Musculoskeletal: No acute osseous pathology. Other findings: None IMPRESSION: No acute cardiopulmonary disease/process.
[2024-07-10 20:30] LABS: Basophils # (A) 0.1 k/uL (0-0.2); Basophils % (A) 1 %; Eosinophils # (A) 0.1 k/uL (0-0.7); Eosinophils % (A) 1 %; HCT 43.3 % (39.0-53.0); HGB 14.8 gm/dL (13.0-17.5); Lymphocytes # (A) 2.1 k/uL (1.0-4.8); Lymphocytes % (A) 18 %; MCHC 34.1 g/dL (31.0-37.0); Mean Platelet Volume 8.2; Monocytes # (A) 0.7 k/uL (0-1.0); Monocytes % (A) 6 %; Neutrophils # (A) 8.6 k/uL (1.3-7.7); Neutrophils % (A) 73 %; Platelet Count 366 k/uL (150-450); RBC 4.92 m/uL (4.30-5.90); RDW 14.8 % (11.5-15.5); WBC 11.9 k/uL (3.8-10.6)
[2024-07-10] MEDS: LORazepam 2 MG/ML INJ IV STA ×2 (20:39→22:20)
[2024-07-10 20:50] LABS: AST 47 U/L (17-59); African American GFR (CKD) >90 (>60 ml/min/1.73 sqM); Albumin 5.4 g/dL (3.5-5.0); Alkaline Phosphatase 89 U/L (38-126); Anion Gap 17 mmol/L; Blood Urea Nitrogen 20 mg/dL (9-20); Calcium 9.7 mg/dL (8.4-10.2); Carbon Dioxide 18 mmol/L (22-30); Chloride 100 mmol/L (98-107); Glucose 119 mg/dL (74-99); Lipase 99 U/L (23-300); Magnesium 1.6 mg/dL (1.6-2.3); Non-African American GFR(CKD) >90 (>60 ml/min/1.73 sqM); Potassium 4.6 mmol/L (3.5-5.1); Sodium 135 mmol/L (137-145); Total Bilirubin 1.2 mg/dL (0.2-1.3); Total Protein 8.3 g/dL (6.3-8.2)
[2024-07-10 21:01] LABS: ALT 40 U/L (4-49)
[2024-07-10 21:09] LABS: Partial Thromboplastin Time 22.4 sec (22.0-30.0); Prothrombin Time 10.7 sec (10.0-12.5)
[2024-07-10] MEDS: SODIUM CHLORIDE 0.9% 1,000 ML IV STA (21:33)
[2024-07-11] MEDS ORDERED: ONDANSETRON 4 MG/2 ML VIAL IVP PRN (00:30)
[2024-07-11] MEDS ORDERED: IBUPROFEN 400 MG TAB PO PRN (00:30)
[2024-07-11] MEDS ORDERED: ACETAMINOPHEN TAB 325 MG TAB PO PRN (00:30)
[2024-07-11] MEDS ORDERED: NALOXONE 0.4 MG/ML 1 ML VIAL IV PRN (00:30)
[2024-07-11] MEDS ORDERED: LORazepam 2 MG/ML INJ IV PRN ×2 (00:49)
[2024-07-11 01:24] LABS: NT-Pro-B-Type Natriuretic Pept 23 pg/mL
[2024-07-11] MEDS: SODIUM CHLORIDE 0.9% 1,000 ML IV SCH (03:12)
[2024-07-11] MEDS: LORazepam 2 MG/ML INJ IV PRN (03:20)
[2024-07-11 05:22] LABS: Amphetamine Screen,Urine Not Detected (NotDetected); Barbiturate Screen,Urine Not Detected (NotDetected); Benzodiazepines Screen,Urine Detected (NotDetected); Cocaine Screen,Urine Not Detected (NotDetected); Methadone Screen, Urine Not Detected (NotDetected); Opiate Screen,Urine Not Detected (NotDetected); Oxycodone Screen, Urine Not Detected (NotDetected); Phencyclidine Screen,Urine Not Detected (NotDetected); Tricyclic Antidepressant,Urine Not Detected (NotDetected); Urn Cannabinoid Scrn Not Detected (NotDetected)
[2024-07-11] MEDS: LEVOTHYROXINE 75 MCG TAB PO SCH (06:21)
[2024-07-11] MEDS: lisinopriL 10 MG TAB PO SCH (08:15)
[2024-07-11] MEDS: busPIRone HCl 10 MG TAB PO SCH (08:16)
[2024-07-11] MEDS: PANTOPRAZOLE 40 MG TABLET PO SCH (08:16)
[2024-07-11] MEDS: NON FORMULARY DRUG (Vilazodone Hcl [Viibryd] 20 MG Tablet) PO SCH (08:23)
[2024-07-11] MEDS ORDERED: busPIRone HCl 10 MG TAB PO PRN (09:00)
--- NOTE | 2024-07-11 10:15 | P.CRDCN ---
History of Present Illness History of present illness: HISTORY OF PRESENT ILLNESS: This is a 48-year-old male with a past medical history significant for pulmonary embolism, hypertension, anxiety, alcohol abuse, and former nicotine dependence. Patient used to follow in the office with Dr. Morataya but has not been seen since 2020. We have been asked to see the patient in consultation for chest pain. Patient examined at the bedside in the ER. States he was feeling unwell over the weekend. He was nauseous and had episodes of vomiting along with fatigue. He states he began to have chest pain afterwards which increased in severity so he came to the ER. Denies SOB. Reports diaphoresis. Reports a similar episode in February and states he underwent neurologic evaluation at that time which he reports was normal. He denies any chest pain at the time of examination. Denies family history of CAD. He currently denies alcohol or nicotine use. Denies drug use. The patient previously underwent echocardiogram and stress testing in 2020 which was normal according to cardiology office records. However records of stress test and echocardiogram were not available at this time. DIAGNOSTICS: - EKG reveals sinus tachycardia with nonspecific ST-T wave changes - Chest xray negative for acute process. - Laboratory data: WBC 11.9. Hemoglobin 14.8. Platelet count 366. D-dimer 0.25. Sodium 135. Potassium 4.6. BUN 20. Creatinine 0.73. Troponin negative x 2. proBNP 23. TSH 3.490. - Current home cardiac medications include lisinopril 10 mg daily and Xarelto 20 mg daily REVIEW OF SYSTEMS: At the time of my exam: CONSTITUTIONAL: Denies fever or chills. HEENT: Denies blurred vision, vision changes, or eye pain. Denies hemoptysis CARDIOVASCULAR: Denies chest pain. Denies orthopnea. Denies PND. Denies palpitations RESPIRATORY: Denies shortness of breath. GASTROINTESTINAL: Denies abdominal pain. Denies nausea or vomiting. HEMATOLOGIC: Denies bleeding disorders. GENITOURINARY: Denies any blood in urine. SKIN: Denies pruitis. Denies rash. PHYSICAL EXAM: VITAL SIGNS: Reviewed. GENERAL: Well-developed in no acute distress. HEENT: Head is normocephalic. Pupils are equal, round. Sclerae anicteric. Mucous membranes of the mouth are moist. Neck supple. No JVD or thyromegaly LUNGS: Respirations even and unlabored. Lungs essentially clear to auscultation bilaterally. HEART: Regular rate and rhythm. S1 and S2 heard. ABDOMEN: Soft. Nondistended. Nontender. EXTREMITIES: Normal range of motion. No clubbing or cyanosis. Peripheral pulses intact. No lower extremity edema NEUROLOGIC: Awake and alert. Oriented x 3. ASSESSMENT: Chest pain, troponin negative x 2 Sinus tachycardia, resolved History of pulmonary embolism, 5-6 yrs ago, on Xarelto outpatient Hypertension Anxiety History of alcohol abuse Former nicotine dependence Hypothyroidism PLAN: An acute coronary rate has been ruled out Obtain 2D echo to assess cardiac structure and function Resume home cardiac medications Patient to undergo stress echo today Further recommendations pending patient course Nurse practitioner note has been reviewed by physician. Signing provider agrees with the documented findings, assessment, and plan of care documented by STERILE PROCESS COORDINATOR as a scribe. Past Medical History Past Medical History: GERD/Reflux, Hyperlipidemia, Hypertension, Thyroid Disorder History of Any Multi-Drug Resistant Organisms: None Reported Past Surgical History: No Surgical Hx Reported Past Psychological History: Anxiety Smoking Status: Former smoker Past Alcohol Use History: Abuse Past Drug Use History: None Reported Medications and Allergies Home Medications Medication Instructions Recorded Confirmed Type Levothyroxine Sodium [Synthroid] 75 mcg PO DAILY 02/12/24 07/10/24 History Pantoprazole Sodium [Protonix] 40 mg PO DAILY 02/12/24 07/10/24 History Rivaroxaban [Xarelto] 20 mg PO DAILY 02/12/24 07/10/24 History busPIRone HCL 10 mg PO BID 02/12/24 07/10/24 History lisinopriL [Zestril] 10 mg PO DAILY 02/12/24 07/10/24 History Sildenafil Citrate 60 - 100 mg PO DAILY PRN MDD 100mg 02/23/24 07/10/24 History Vilazodone HCl [Viibryd] 20 mg PO DAILY 07/10/24 07/10/24 History busPIRone HCl [Buspar] 10 mg PO DAILY PRN 07/10/24 07/10/24 History Allergies Allergy/AdvReac Type Severity Reaction Status Date / Time No Known Allergies Allergy Verified 07/10/24 20:51 Physical Exam Vitals: Vital Signs Temp Pulse Pulse Resp BP Pulse Ox 07/11/24 07:48 79 14 119/83 95 07/11/24 06:00 77 15 103/64 96 07/11/24 05:00 80 15 103/66 95 07/11/24 04:24 93 17 107/65 97 07/11/24 03:13 98.1 F 103 H 18 135/84 96 07/11/24 02:00 113 H 16 99 07/11/24 01:00 128 H 16 126/86 98 07/11/24 00:00 129 H 20 144/99 99 07/10/24 23:00 112 H 16 140/92 97 07/10/24 21:45 106 H 134/82 07/10/24 21:41 109 H 20 97 07/10/24 21:37 114 H 18 07/10/24 21:00 117 H 20 118/78 99 07/10/24 20:42 120 H 22 106/67 99 07/10/24 20:24 140 H 22 90/64 97 07/10/24 20:19 140 H 22 138/86 96 07/10/24 20:11 133 H 20 143/108 96 07/10/24 18:45 98.4 F 137 H 24 143/82 98 Intake and Output 07/10/24 07/11/24 07/11/24 22:59 06:59 14:59 Other: Weight 111.13 kg Results 07/10/24 20:14 07/10/24 20:14 Cardiac Enzymes 07/10/24 07/10/24 07/10/24 Range/Units 20:14 20:14 23:19 AST 47 (17-59) U/L Troponin I <0.012 <0.012 (0.000-0.034) ng/mL Coagulation 07/10/24 Range/Units 20:14 PT 10.7 (10.0-12.5) sec APTT 22.4 (22.0-30.0) sec CBC 07/10/24 Range/Units 20:14 WBC 11.9 H (3.8-10.6) k/uL RBC 4.92 (4.30-5.90) m/uL Hgb 14.8 (13.0-17.5) gm/dL Hct 43.3 (39.0-53.0) % Plt Count 366 (150-450) k/uL Comprehensive Metabolic Panel 07/10/24 Range/Units 20:14 Sodium 135 L (137-145) mmol/L Potassium 4.6 (3.5-5.1) mmol/L Chloride 100 (98-107) mmol/L Carbon Dioxide 18 L (22-30) mmol/L BUN 20 (9-20) mg/dL Creatinine 0.73 (0.66-1.25) mg/dL Glucose 119 H (74-99) mg/dL Calcium 9.7 (8.4-10.2) mg/dL AST 47 (17-59) U/L ALT 40 (4-49) U/L Alkaline Phosphatase 89 (38-126) U/L Total Protein 8.3 H (6.3-8.2) g/dL Albumin 5.4 H (3.5-5.0) g/dL Current Medications Generic Name Dose Route Start Last Admin Trade Name Freq PRN Reason Stop Dose Admin Acetaminophen 650 mg 07/11/24 00:30 Acetaminophen Tab 325 Mg Tab PO Q6HR PRN Mild Pain or Fever > 100.5 Buspirone HCl 10 mg 07/11/24 09:00 Buspirone Hcl 10 Mg Tab PO DAILY PRN Anxiety Buspirone HCl 10 mg 07/11/24 09:00 Buspirone Hcl 10 Mg Tab PO BID AMOR Sodium Chloride 1,000 mls @ 75 mls/hr 07/11/24 00:30 07/11/24 03:12 Saline 0.9% IV 75 mls/hr .[id number] AMOR Administration Levothyroxine Sodium 75 mcg 07/11/24 06:30 07/11/24 06:21 Levothyroxine 75 Mcg Tab PO 75 mcg DAILY@0630 AMOR Administration Lisinopril 10 mg 07/11/24 09:00 Lisinopril 10 Mg Tab PO DAILY AMOR Lorazepam 1 mg 07/11/24 00:49 Lorazepam 2 Mg/Ml Inj IV Q1HR PRN CIWA 10 to 15 Lorazepam 1 mg 07/11/24 00:49 07/11/24 03:20 Lorazepam 2 Mg/Ml Inj IV 1 mg Q2HR PRN Administration CIWA 8 or 9 Lorazepam 2 mg 07/11/24 00:49 Lorazepam 2 Mg/Ml Inj IV 07/13/24 00:49 Q10M PRN CIWA 16 or higher Naloxone HCl 0.2 mg 07/11/24 00:30 Naloxone 0.4 Mg/Ml 1 Ml Vial IV Q2M PRN Opioid Reversal Non-Formulary Medication 20 mg 07/11/24 09:00 Vilazodone Hcl [Viibryd] PO DAILY AMOR Ondansetron HCl 4 mg 07/11/24 00:30 Ondansetron 4 Mg/2 Ml Vial IVP Q8HR PRN Nausea And Vomiting Pantoprazole Sodium 40 mg 07/11/24 09:00 Pantoprazole 40 Mg Tablet PO DAILY AMOR Intake and Output 07/10/24 07/11/24 07/11/24 22:59 06:59 14:59 Other: Weight 111.13 kg 07/10/24 20:14 07/10/24 20:14
[2024-07-11 10:35] VITALS: RESP 18
--- NOTE | 2024-07-11 11:17 | P.HPIM ---
History of Present Illness H&P Date: 07/11/24 Chief Complaint: Chest pain History and Physical and Discharge Summary This is a 48-year-old gentleman with past medical history significant for obe sity , PE 5 years ago-etiology unclear, continues on Xarelto as recommended per deckhand fishing vessel,anxiety, gastroesophageal reflux disease, hypertension, former nicotine dependence, alcohol abuse multiple other medical issues. Patient reports feeling fatigued off-and-on since Wednesday, then on Wednesday morning around 5 AM developed nausea ,vomiting ,diarrhea dry heaves, hot flashes. As the day progressed developed progressive chest tightness, diaphoresis and presented to the ER. Denies shortness of breath. Denies family history of CAD. Patient reports normal treadmill stress test approximately 4 years ago. Toxicology screen reported positive for benzos with serum alcohol less than 10. EKG is re porting sinus tachycardia, nonspecific ST wave changes, troponins negative x 2 .afebrile, normal WBC. Chest x-ray reporting nonacute, maintaining O2 sats in the high 90s to 100% on room air. Hematology, coagulation and chemistry panels unremarkable ; TSH 3.49 .tachycardia resolved. Symptoms resolved, no further nausea vomiting. No abdominal pain. Denies lightheadedness, dizziness or focal deficits. Denies palpitations or shortness of breath. Review of Systems ROS Statement: Those systems with pertinent positive or pertinent negative responses have been documented in the HPI. ROS Other: All systems not noted in ROS Statement are negative. Past Medical History Past Medical History: GERD/Reflux, Hyperlipidemia, Hypertension, Thyroid Disorder History of Any Multi-Drug Resistant Organisms: None Reported Past Surgical History: No Surgical Hx Reported Past Psychological History: Anxiety Smoking Status: Former smoker Past Alcohol Use History: Abuse Past Drug Use History: None Reported Medications and Allergies Home Medications Medication Instructions Recorded Confirmed Type Levothyroxine Sodium [Synthroid] 75 mcg PO DAILY 02/12/24 07/10/24 History Pantoprazole Sodium [Protonix] 40 mg PO DAILY 02/12/24 07/10/24 History Rivaroxaban [Xarelto] 20 mg PO DAILY 02/12/24 07/10/24 History busPIRone HCL 10 mg PO BID 02/12/24 07/10/24 History lisinopriL [Zestril] 10 mg PO DAILY 02/12/24 07/10/24 History Sildenafil Citrate 60 - 100 mg PO DAILY PRN MDD 100mg 02/23/24 07/10/24 History Vilazodone HCl [Viibryd] 20 mg PO DAILY 07/10/24 07/10/24 History busPIRone HCl [Buspar] 10 mg PO DAILY PRN 07/10/24 07/10/24 History Allergies Allergy/AdvReac Type Severity Reaction Status Date / Time No Known Allergies Allergy Verified 07/10/24 20:51 Physical Exam Vitals: Vital Signs Temp Pulse Pulse Resp BP Pulse Ox 07/11/24 10:34 82 18 117/72 96 07/11/24 08:14 75 16 130/73 95 07/11/24 07:48 79 14 119/83 95 07/11/24 06:00 77 15 103/64 96 07/11/24 05:00 80 15 103/66 95 07/11/24 04:24 93 17 107/65 97 07/11/24 03:13 98.1 F 103 H 18 135/84 96 07/11/24 02:00 113 H 16 99 07/11/24 01:00 128 H 16 126/86 98 07/11/24 00:00 129 H 20 144/99 99 07/10/24 23:00 112 H 16 140/92 97 07/10/24 21:45 106 H 134/82 07/10/24 21:41 109 H 20 97 07/10/24 21:37 114 H 18 07/10/24 21:00 117 H 20 118/78 99 07/10/24 20:42 120 H 22 106/67 99 07/10/24 20:24 140 H 22 90/64 97 07/10/24 20:19 140 H 22 138/86 96 07/10/24 20:11 133 H 20 143/108 96 07/10/24 18:45 98.4 F 137 H 24 143/82 98 Intake and Output 07/10/24 07/11/24 07/11/24 22:59 06:59 14:59 Other: Weight 111.13 kg PHYSICAL EXAM: VITAL SIGNS: [As above] GENERAL: Well-developed, alert and oriented x 3, sitting up on stretcher, no acute distress HEENT: Normocephalic, atraumatic conjunctivae normal. eyes normal. No scleral icterus NECK: Supple, no JVD. No thyroid enlargement. No LNs CARDIOVASCULAR: S1, S2 regular.. No murmur RESPIRATION: Unlabored, equal air entry ,breath sounds diminished in the bases. No rhonchi or crackles. No bronchial breathing. ABDOMEN: Soft, nondistended, nontender . No guarding. no masses palpable. No ascites, No hepatosplenomegaly.Bowel sounds heard. LEGS: No edema. no swelling NERVOUS SYSTEM: Cranial N 2-12 grossly normal. no focal deficits. Strength and sensation grossly intact. Skin: Warm and dry, no rash Results CBC & Chem 7: 07/10/24 20:14 07/10/24 20:14 Labs: Abnormal Lab Results - Last 24 Hours (Table) 07/10/24 07/10/24 07/11/24 Range/Units 20:14 20:14 03:57 WBC 11.9 H (3.8-10.6) k/uL Neutrophils # 8.6 H (1.3-7.7) k/uL Sodium 135 L (137-145) mmol/L Carbon Dioxide 18 L (22-30) mmol/L Glucose 119 H (74-99) mg/dL Total Protein 8.3 H (6.3-8.2) g/dL Albumin 5.4 H (3.5-5.0) g/dL U Benzodiazepines Scrn Detected H (NotDetected) Assessment and Plan Assessment: Chest tightness, sinus tachycardia, troponins negative x 2 History of PE 5 years ago, anticoagulated on Xarelto Morbid obesity, BMI 33 Hypertension Anxiety History of alcohol abuse, serum alcohol less than 10 Prior nicotine dependence Hypothyroidism Gastroesophageal reflux disease Plan: Continue on current medication regimen ,monitoring and symptomatic treatment. Echo pending. evaluated by cardiology, stress echo ordered. Patient will be discharged home today in a stable condition with guarded prognosis pending stress test results, final DC recommendations and clearance per cardiology. Discharge Medication List Levothyroxine Sodium [Synthroid] 75 mcg PO DAILY 02/12/24 [History] Pantoprazole Sodium [Protonix] 40 mg PO DAILY 02/12/24 [History] Rivaroxaban [Xarelto] 20 mg PO DAILY 02/12/24 [History] busPIRone HCL 10 mg PO BID 02/12/24 [History] lisinopriL [Zestril] 10 mg PO DAILY 02/12/24 [History] Sildenafil Citrate 60 - 100 mg PO DAILY PRN MDD 100mg 02/23/24 [History] Vilazodone HCl [Viibryd] 20 mg PO DAILY 07/10/24 [History] busPIRone HCl [Buspar] 10 mg PO DAILY PRN 07/10/24 [History] The impression and plan of care has been dictated as directed. : I performed a history and examination of this patient, discussed the same with the dictator. I agree with the dictator's note ,documented as a scribe. Any additional findings or plans will be noted.
--- NOTE | 2024-07-11 13:26 | CA ---
Transthoracic Echo Report Name: Geo Rodriguez Age: 48 Gender: M : 1975 Exam Date: 07/11/2024 12:17 Exam Location: [place] [facility] Ht (in): 69 Wt (lb): 249 Ordering Physician: Dorina Scott Attending/Referring Phys: [employer] Director Arianna Yee RDCS Procedure CPT: Indications: chest pain, tachycardia Cardiac Hx: PE Technical Quality: Fair, Technically difficult study Contrast 1: Definity Total Dose (mL): 2 Contrast 2: Total Dose (mL): MEASUREMENTS (Male / Female) Normal Values 2D ECHO LV Diastolic Diameter PLAX 5.0 cm 4.2 - 5.9 / 3.9 - 5.3 cm LV Systolic Diameter PLAX 3.0 cm IVS Diastolic Thickness 1.4 cm 0.6 - 1.0 / 0.6 - 0.9 cm LVPW Diastolic Thickness 1.2 cm 0.6 - 1.0 / 0.6 - 0.9 cm LV Relative Wall Thickness 0.5 RV Internal Dim ED PLAX 4.0 cm LA Systolic Diameter LX 4.4 cm 3.0 - 4.0 / 2.7 - 3.8 cm LA Volume 74.9 cm??? 18 - 58 / 22 - 52 cm??? LA Volume Index 31.4 cm???/m??? 16 - 28 cm???/m??? Ascending Aorta Diameter 3.4 cm M-MODE Aortic Root Diameter MM 3.8 cm LA Systolic Diameter MM 4.3 cm LA Ao Ratio MM 1.2 AV Cusp Separation MM 2.1 cm DOPPLER AV Peak Velocity 144.7 cm/s AV Peak Gradient 8.4 mmHg MV Area PHT 3.5 cm??? Mitral E Point Velocity 61.7 cm/s Mitral A Point Velocity 98.9 cm/s Mitral E to A Ratio 0.6 MV Deceleration Time 218.8 ms FINDINGS Left Ventricle Left ventricular ejection fraction is estimated at 60-65 %. Moderately increased septal wall thickness.left ventricular cavity size normal. No obvious regional wall motion abnormalities. Right Ventricle Moderate right ventricular dilatation. Unable to estimate the right ventricular systolic pressure. Right Atrium Mild right atrial dilatation. Left Atrium Mildly increased left atrial diameter. Mildly increased left atrial volume. Mildly increased left atrial area. Mitral Valve Structurally normal mitral valve. Mild mitral regurgitation. No mitral stenosis. Aortic Valve Trileaflet aortic valve. No aortic stenosis. No aortic regurgitation. Tricuspid Valve Structurally normal tricuspid valve. Trace tricuspid regurgitation. No tricuspid stenosis. Pulmonic Valve Structurally normal pulmonic valve. Trace pulmonic regurgitation. No pulmonic stenosis. Pericardium No pericardial or pleural effusion. Aorta Mild aortic dilatation at the level of the sinuses of valsalva (root). CONCLUSIONS Left ventricular ejection fraction 60-65% Moderate increased lefy ventricular wall thickness Mild left atrial dilation Mild mitral regurgitation Trace tricuspid regurgitation Previewed by: Dr. Dick Noel DO (Electronically Signed) Final Date: 11 July 2024 13:25
--- NOTE | 2024-07-11 13:29 | CA ---
Stress Echo Report Geo Rodriguez Age: 48 Gender: M : 1975 Exam Date: 07/11/2024 11:46 Exam Location: [facility] Stress Ht (in): 72 Wt (lb): 245 Ordering Physician: Glenna Hicks Referring Physician: [id number] Molecular Geneticist: Eliel Ly Technologist Procedure CPT: Indication: CP ICD-9 Codes: Rhythm: Patient History: Cardiac Medications: see chart Medications in past 24 hours: Contrast: Definity Stress Results Protocol: Gilbert Total dose(mL): 2 Exercise Duration (min:sec): 6:[address] Depression (mm): Angina Score: Liao Score: METS: 7.9 Resting HR: 107 Resting BP: 154 / 87 Peak HR: 161 Peak BP: 170 / 80 Max Predicted HR: 173 93 % Max Predicted HR Target HR: 147 Double Product: [id number] Stress Summary: BP Response: Reason for Termination: Reached target heart rate or work-load Cardiac Symptoms: no symptoms ECG Analysis Resting ECG: Stress ECG: Arrhythmia: Echo Analysis Resting Echo: Peak Echo Analysis: MEASUREMENTS (Male/Female) Normal Values CONCLUSIONS Patient underwent exercise stress echo with a Gilbert protocol treadmill stress test. Patient exercised into Stage 2 for a total of 6 minutes and 36 seconds reaching a total of 7.9 METS. Patient's maximum heart rate was 161 which represented 93% age- predicted maximum heart rate. Stress EKG portion: At baseline patient's EKG showed normal sinus rhythm, normal axis, 0.[address] depressions in the inferior leads as well as T- wave inversion V3 through V6. At peak exercise, EKG showed no significant change from baseline. Stress echo portion: 2-D echocardiogram was performed in the parasternal long, personal short, apical 2 and apical four-chamber views at rest, peak exercise and in recovery. At baseline, echocardiogram showed left ventricular ejection fraction 55% without wall motion abnormalities. With peak exercise, echocardiogram shows improvement in left ventricular ejection fraction, increase contractility, decrease in left ventricular end systolic dimension without wall motion abnormalities consistent with a normal response to exercise. Conclusions: 1. Nonspecific stress EKG portion second baseline EKG abnormalities 2. Normal echo response to exercise without evidence of inducible ischemia. 3. Fair exercise capacity. Dr. Dick Noel DO (Electronically Signed) Final Date: 11 July 2024 13:28
[2024-07-11 14:35] VITALS: BP 140/87; PULSE 98; TEMP 98.4
== END 2024-07-11 14:45 | disposition home or self-care (01) ==
LOC: EC 18:39 → 6NMEDSUR 07-11 00:47
PROVIDERS: ADMIT Family Medicine; ATTEND Family Medicine
DX: R07.89 Other chest pain (principal); R00.0 Tachycardia, unspecified; K21.9 Gastro-esophageal reflux disease without esophagitis; E78.5 Hyperlipidemia, unspecified; I10 Essential (primary) hypertension; F41.9 Anxiety disorder, unspecified; E03.9 Hypothyroidism, unspecified; E66.01 Morbid (severe) obesity due to excess calories; F10.10 Alcohol abuse, uncomplicated; Y90.0 Blood alcohol level of less than 20 mg/100 ml; Z68.33 Body mass index [BMI] 33.0-33.9, adult; Z86.711 Personal history of pulmonary embolism; Z87.891 Personal history of nicotine dependence; Z79.01 Long term (current) use of anticoagulants; Z79.890 Hormone replacement therapy; Z79.899 Other long term (current) drug therapy
CPT/HCPCS: 36415; 71046; 80053; 80306; 80320; 83690; 83735; 83880; 84443; 84484; 85025; 85379; 85610; 85730; 93005; 93306; 93351; 96361; 96374; 96375; 96376; 99285

== ENCOUNTER 2024-10-25 11:35 | Observation (INO) | payer OTHER ==
--- NOTE | 2024-10-25 12:18 | ED ---
Alcohol HPI - General Chief Complaint: Alcohol Stated Complaint: alcohol withdrawal Time Seen by Provider: 10/25/24 12:12 Source: patient, RN notes reviewed Mode of arrival: ambulatory Limitations: no limitations - History of Present Illness Initial Comments: This is a 49-year-old male who presents to the emergency department for alcohol withdrawals. States that he last consumed alcohol last night and states that he had a bunch of vodka. Now feels like he is going through withdrawals. Reports nausea, vomiting, and shaking. Denies any history of withdrawal seizures or DTs. States that he was hospitalized several years ago for alcohol withdrawals. MD Complaint: alcohol withdrawal - Related Data Home Medications Medication Instructions Recorded Confirmed Levothyroxine Sodium [Synthroid] 75 mcg PO DAILY 02/12/24 10/25/24 Pantoprazole Sodium [Protonix] 40 mg PO DAILY 02/12/24 10/25/24 Rivaroxaban [Xarelto] 20 mg PO DAILY 02/12/24 10/25/24 lisinopriL [Zestril] 10 mg PO DAILY 02/12/24 10/25/24 Vilazodone HCl [Viibryd] 20 mg PO DAILY 07/10/24 10/25/24 busPIRone HCl [Buspar] 10 mg PO TID PRN 07/10/24 10/25/24 Allergies Allergy/AdvReac Type Severity Reaction Status Date / Time No Known Allergies Allergy Verified 10/25/24 14:31 Review of Systems ROS Statement: Those systems with pertinent positive or pertinent negative responses have been documented in the HPI. ROS Other: All systems not noted in ROS Statement are negative. Past Medical History Past Medical History: GERD/Reflux, Hyperlipidemia, Hypertension, Thyroid Di sorder History of Any Multi-Drug Resistant Organisms: None Reported Past Surgical History: No Surgical Hx Reported Past Psychological History: Anxiety Smoking Status: Former smoker Past Alcohol Use History: Abuse Past Drug Use History: None Reported General Exam Limitations: no limitations General appearance: alert, other (Shaky) Head exam: Present: atraumatic, normocephalic, normal inspection Respiratory exam: Present: normal lung sounds bilaterally. Absent: respiratory distress, wheezes, rales, rhonchi, stridor Cardiovascular Exam: Present: normal rhythm, tachycardia GI/Abdominal exam: Present: soft, normal bowel sounds. Absent: distended, tenderness, guarding, rebound, rigid Neurological exam: Present: alert, oriented X3, CN II-XII intact Psychiatric exam: Present: normal affect, normal mood Skin exam: Present: warm, dry, intact, normal color. Absent: rash Course Vital Signs 10/25/24 10/25/24 10/25/24 12:29 15:18 15:48 Temperature 97.8 F 98.4 F Pulse Rate 111 H 97 102 H Pulse Rate [ Pulse Oximetery ] Respiratory 20 17 16 Rate Blood Pressure 153/101 152/95 162/100 Blood Pressure [Right Arm] O2 Sat by Pulse 96 94 L 97 Oximetry 10/25/24 16:00 Temperature 98.1 F Pulse Rate Pulse Rate [ 114 H Pulse Oximetery ] Respiratory 20 Rate Blood Pressure Blood Pressure 165/99 [Right Arm] O2 Sat by Pulse 97 Oximetry Medical Decision Making - Medical Decision Making This is a 49-year-old male who presents to the emergency department for alcohol withdrawals. Was pt. sent in by a medical professional or institution? @ -No Did you speak to anyone other than the patient for history? @ -No Did you review nursing and triage notes? @ -Yes, and I agree, it is accurate with regards to the patient's symptoms. Were old charts reviewed? @ -No Differential Diagnosis? @ -Sympathomimetic syndrome, anti-muscarinic syndrome, serotonin syndrome, neuroleptic malignant syndrome, thyrotoxicosis, encephalitis, acute psychosis, hypoglycemia, trauma, sepsis. This is not meant to be an all-inclusive list. EKG interpreted by me (3pts min.)? @ -EKG interpreted by me demonstrating the following: Sinus rhythm. Ventricular rate 97 bpm, DC interval 136 ms, QRS duration 94 ms, QTc 420 ms. X-rays interpreted by me (1pt min.)? @ -Not obtained CT interpreted by me (1pt min.)? @ -Not obtained U/S interpreted by me (1pt. min.)? @ -Not obtained What testing was considered but not performed? (CT, X-rays, U/S, labs)? Why? @ -None What meds were considered but not given? Why? @ -None Did you discuss the management of the patient with other professionals? @ -Yes, Dr. Calzada, who accepts the patient for admission Did you reconcile home meds? @ -Yes Was smoking cessation discussed for >3mins.? @ -No Was critical care preformed (if so, how long)? @ -No Were there social determinants of health that impacted care today? How? (Homelessness, low income, unemployed, alcoholism, drug addiction, transportation, low edu. Level, literacy, decrease access to med. care, senior care, rehab)? @ -Alcoholism, leading to the withdrawals. Was there de-escalation of care discussed even if they declined? (Discuss DNR or withdrawal of care, Hospice)? @ -No What co-morbidities impacted this encounter? (DM, HTN, Smoking, COPD, CAD, Cancer, CVA, Hep., AIDS, mental health diagnosis, sleep apnea, morbid obesity)? @ -Alcoholism Was patient admitted / discharged? @ -Admitted. Lab work relatively unremarkable. Alcohol level 10. UDS only positive for benzodiazepines. Patient had a CIWA of 14 on arrival. He was fairly shaky and continued to be nauseous. He was also persistently tachycardic. Patient admitted to medicine for alcohol withdrawals. CIWA protocol and seizure precautions were initiated. He was also started on maintenance IV fluids. Case discussed with ED attending Dr. Kumar. Undiagnosed new problem with uncertain prognosis? @ -None Drug Therapy requiring intensive monitoring for toxicity (Heparin, Nitro, Insulin, Cardizem)? @ -None Were any procedures done? @ -None Diagnosis/symptom? @ -Alcohol withdrawals Acute, or Chronic, or Acute on Chronic? @ -Acute Uncomplicated (without systemic symptoms) or Complicated (systemic symptoms)? @ -Complicated Side effects of treatment? @ -None Exacerbation, Progression, or Severe Exacerbation] @ -Not applicable Poses a threat to life or bodily function? @ -Yes, can lead to DTs and withdrawal seizures - Lab Data Result diagrams: 10/25/24 12:54 10/25/24 12:54 Lab Results 10/25/24 10/25/24 10/25/24 Range/Units 12:54 12:54 12:54 WBC 6.9 (3.8-10.6) k/uL RBC 4.87 (4.30-5.90) m/uL Hgb 13.1 (13.0-17.5) gm/dL Hct 40.7 (39.0-53.0) % MCV 83.6 (80.0-100.0) fL MCH 27.0 (25.0-35.0) pg MCHC 32.3 (31.0-37.0) g/dL RDW 14.7 (11.5-15.5) % Plt Count 346 (150-450) k/uL MPV 7.4 Neutrophils % 74 % Lymphocytes % 16 % Monocytes % 6 % Eosinophils % 1 % Basophils % 1 % Neutrophils # 5.0 (1.3-7.7) k/uL Lymphocytes # 1.1 (1.0-4.8) k/uL Monocytes # 0.4 (0-1.0) k/uL Eosinophils # 0.1 (0-0.7) k/uL Basophils # 0.1 (0-0.2) k/uL PT 11.2 (10.0-12.5) sec INR 1.0 (<1.2) Sodium 139 (137-145) mmol/L Potassium 4.4 (3.5-5.1) mmol/L Chloride 108 H (98-107) mmol/L Carbon Dioxide 18 L (22-30) mmol/L Anion Gap 13 mmol/L BUN 14 (9-20) mg/dL Creatinine 0.60 L (0.66-1.25) mg/dL Est GFR (CKD-EPI)AfAm >90 (>60 ml/min/1.73 sqM) Est GFR (CKD-EPI)NonAf >90 (>60 ml/min/1.73 sqM) Glucose 112 H (74-99) mg/dL Calcium 9.1 (8.4-10.2) mg/dL Phosphorus 3.1 (2.5-4.5) mg/dL Magnesium 1.7 (1.6-2.3) mg/dL Total Bilirubin 0.8 (0.2-1.3) mg/dL AST 56 (17-59) U/L ALT 44 (4-49) U/L Alkaline Phosphatase 89 (38-126) U/L Total Protein 7.5 (6.3-8.2) g/dL Albumin 4.9 (3.5-5.0) g/dL Urine Opiates Screen (NotDetected) Ur Oxycodone Screen (NotDetected) Urine Methadone Screen (NotDetected) Ur Barbiturates Screen (NotDetected) U Tricyclic Antidepress (NotDetected) Ur Phencyclidine Scrn (NotDetected) Ur Amphetamines Screen (NotDetected) U Methamphetamines Scrn (NotDetected) U Benzodiazepines Scrn (NotDetected) Urine Cocaine Screen (NotDetected) U Marijuana (THC) Screen (NotDetected) Serum Alcohol 10 mg/dL 10/25/24 Range/Units 13:15 WBC (3.8-10.6) k/uL RBC (4.30-5.90) m/uL Hgb (13.0-17.5) gm/dL Hct (39.0-53.0) % MCV (80.0-100.0) fL MCH (25.0-35.0) pg MCHC (31.0-37.0) g/dL RDW (11.5-15.5) % Plt Count (150-450) k/uL MPV Neutrophils % % Lymphocytes % % Monocytes % % Eosinophils % % Basophils % % Neutrophils # (1.3-7.7) k/uL Lymphocytes # (1.0-4.8) k/uL Monocytes # (0-1.0) k/uL Eosinophils # (0-0.7) k/uL Basophils # (0-0.2) k/uL PT (10.0-12.5) sec INR (<1.2) Sodium (137-145) mmol/L Potassium (3.5-5.1) mmol/L Chloride (98-107) mmol/L Carbon Dioxide (22-30) mmol/L Anion Gap mmol/L BUN (9-20) mg/dL Creatinine (0.66-1.25) mg/dL Est GFR (CKD-EPI)AfAm (>60 ml/min/1.73 sqM) Est GFR (CKD-EPI)NonAf (>60 ml/min/1.73 sqM) Glucose (74-99) mg/dL Calcium (8.4-10.2) mg/dL Phosphorus (2.5-4.5) mg/dL Magnesium (1.6-2.3) mg/dL Total Bilirubin (0.2-1.3) mg/dL AST (17-59) U/L ALT (4-49) U/L Alkaline Phosphatase (38-126) U/L Total Protein (6.3-8.2) g/dL Albumin (3.5-5.0) g/dL Urine Opiates Screen Not Detected (NotDetected) Ur Oxycodone Screen Not Detected (NotDetected) Urine Methadone Screen Not Detected (NotDetected) Ur Barbiturates Screen Not Detected (NotDetected) U Tricyclic Antidepress Not Detected (NotDetected) Ur Phencyclidine Scrn Not Detected (NotDetected) Ur Amphetamines Screen Not Detected (NotDetected) U Methamphetamines Scrn Not Detected (NotDetected) U Benzodiazepines Scrn Detected H (NotDetected) Urine Cocaine Screen Not Detected (NotDetected) U Marijuana (THC) Screen Not Detected (NotDetected) Serum Alcohol mg/dL Disposition Clinical Impression: Alcohol withdrawal Disposition: ADMITTED IP TO THIS HOSP
[2024-10-25] MEDS ORDERED: LORazepam 2 MG/ML INJ IV PRN ×2 (12:32)
[2024-10-25] MEDS: ONDANSETRON 4 MG/2 ML VIAL IVP STA (13:00)
[2024-10-25] MEDS: THIAMINE 100 MG/ML 2 ML VIAL IM STA (13:00)
[2024-10-25] MEDS: SODIUM CHLORIDE 0.9% 1,000 ML IV ONE (13:01)
[2024-10-25 13:09] LABS: Basophils # (A) 0.1 k/uL (0-0.2); Basophils % (A) 1 %; Eosinophils # (A) 0.1 k/uL (0-0.7); Eosinophils % (A) 1 %; HCT 40.7 % (39.0-53.0); HGB 13.1 gm/dL (13.0-17.5); Lymphocytes # (A) 1.1 k/uL (1.0-4.8); Lymphocytes % (A) 16 %; MCHC 32.3 g/dL (31.0-37.0); MCV 83.6 fL (80.0-100.0); Mean Platelet Volume 7.4; Monocytes # (A) 0.4 k/uL (0-1.0); Monocytes % (A) 6 %; Neutrophils % (A) 74 %; Platelet Count 346 k/uL (150-450); RBC 4.87 m/uL (4.30-5.90); RDW 14.7 % (11.5-15.5); WBC 6.9 k/uL (3.8-10.6)
[2024-10-25] MEDS: LORazepam 2 MG/ML INJ IV PRN ×2 (13:12→14:49)
[2024-10-25 13:37] LABS: ALT 44 U/L (4-49); AST 56 U/L (17-59); African American GFR (CKD) >90 (>60 ml/min/1.73 sqM); Albumin 4.9 g/dL (3.5-5.0); Alcohol 10 mg/dL; Alkaline Phosphatase 89 U/L (38-126); Anion Gap 13 mmol/L; Blood Urea Nitrogen 14 mg/dL (9-20); Calcium 9.1 mg/dL (8.4-10.2); Carbon Dioxide 18 mmol/L (22-30); Chloride 108 mmol/L (98-107); Glucose 112 mg/dL (74-99); Magnesium 1.7 mg/dL (1.6-2.3); Non-African American GFR(CKD) >90 (>60 ml/min/1.73 sqM); Phosphorus 3.1 mg/dL (2.5-4.5); Potassium 4.4 mmol/L (3.5-5.1); Sodium 139 mmol/L (137-145); Total Bilirubin 0.8 mg/dL (0.2-1.3); Total Protein 7.5 g/dL (6.3-8.2)
[2024-10-25 13:43] LABS: Prothrombin Time 11.2 sec (10.0-12.5)
[2024-10-25 14:06] LABS: Amphetamine Screen,Urine Not Detected (NotDetected); Barbiturate Screen,Urine Not Detected (NotDetected); Benzodiazepines Screen,Urine Detected (NotDetected); Cocaine Screen,Urine Not Detected (NotDetected); Methadone Screen, Urine Not Detected (NotDetected); Opiate Screen,Urine Not Detected (NotDetected); Oxycodone Screen, Urine Not Detected (NotDetected); Phencyclidine Screen,Urine Not Detected (NotDetected); Tricyclic Antidepressant,Urine Not Detected (NotDetected); Urn Cannabinoid Scrn Not Detected (NotDetected)
[2024-10-25] MEDS ORDERED: ONDANSETRON 4 MG/2 ML VIAL IVP PRN (14:29)
[2024-10-25] MEDS ORDERED: ACETAMINOPHEN TAB 325 MG TAB PO PRN (14:29)
[2024-10-25] MEDS ORDERED: IBUPROFEN 400 MG TAB PO PRN (14:29)
[2024-10-25] MEDS ORDERED: KETOROLAC 15 MG/ML 1 ML VIAL IVP PRN (14:29)
[2024-10-25] MEDS ORDERED: NALOXONE 0.4 MG/ML 1 ML VIAL IV PRN (14:29)
[2024-10-25] MEDS ORDERED: MORPHINE SULFATE 4 MG/ML SYRINGE IV PRN (14:29)
[2024-10-25] MEDS: SODIUM CHLORIDE 0.9% 1,000 ML IV STA ×2 (14:53→14:54)
[2024-10-25] MEDS: PROCHLORPERAZINE INJ 10 MG/2 ML VIAL IVP STA (14:53)
[2024-10-25] MEDS: busPIRone HCl 10 MG TAB PO PRN (21:00)
[2024-10-26] MEDS: LEVOTHYROXINE 75 MCG TAB PO SCH (06:29)
[2024-10-26 07:22] VITALS: BP 134/72; PULSE 63; RESP 17; TEMP 98
[2024-10-26] MEDS ORDERED: PANTOPRAZOLE 40 MG TABLET PO SCH (09:00)
[2024-10-26] MEDS: lisinopriL 10 MG TAB PO SCH (10:00)
[2024-10-26] MEDS: PANTOPRAZOLE 40 MG/10 ML VIAL IV SCH (10:00)
[2024-10-26] MEDS: THIAMINE 100 MG TAB PO SCH (10:00)
[2024-10-26] MEDS: FOLIC ACID 1 MG TAB PO SCH (10:00)
[2024-10-26] MEDS: RIVAROXABAN 20 MG TAB PO SCH (10:00)
[2024-10-26] MEDS: MULTIVITAMINS, THERA 1 EACH TAB PO SCH (10:00)
[2024-10-26] MEDS: NON FORMULARY DRUG (Vilazodone Hcl [Viibryd] 20 MG Tablet) PO SCH (10:21)
--- NOTE | 2024-10-26 13:44 | P.HPIM ---
History of Present Illness H&P Date: 10/26/24 Chief Complaint: Alcohol intoxication History and Physical and Discharge Summary: This is a 49-year-old gentleman presented to the ER reporting he had consumed a lot of vodka, with complaints of nausea, vomiting shaking. Serum alcohol 10, toxicology detected benzodiazepines. Denies chest pain, palpitations or shortness of breath. Maintaining O2 sats in the high 90s on room air. Maintained on IV fluid hydration, recent CIWA score 3. Review of Systems ROS Statement: Those systems with pertinent positive or pertinent negative responses have been documented in the HPI. ROS Other: All systems not noted in ROS Statement are negative. Past Medical History Past Medical History: GERD/Reflux, Hyperlipidemia, Hypertension, Thyroid Disorder History of Any Multi-Drug Resistant Organisms: None Reported Past Surgical History: No Surgical Hx Reported Past Psychological History: Anxiety Smoking Status: Former smoker Past Alcohol Use History: Abuse Past Drug Use History: None Reported Medications and Allergies Home Medications Medication Instructions Recorded Confirmed Type Levothyroxine Sodium [Synthroid] 75 mcg PO DAILY 02/12/24 10/25/24 History Pantoprazole Sodium [Protonix] 40 mg PO DAILY 02/12/24 10/25/24 History Rivaroxaban [Xarelto] 20 mg PO DAILY 02/12/24 10/25/24 History lisinopriL [Zestril] 10 mg PO DAILY 02/12/24 10/25/24 History Vilazodone HCl [Viibryd] 20 mg PO DAILY 07/10/24 10/25/24 History busPIRone HCl [Buspar] 10 mg PO TID PRN 07/10/24 10/25/24 History Allergies Allergy/AdvReac Type Severity Reaction Status Date / Time No Known Allergies Allergy Verified 10/25/24 14:31 Physical Exam Vitals: Vital Signs Temp Pulse Pulse Resp BP BP Pulse Ox 10/26/24 07:21 98.0 F 63 17 134/72 96 10/26/24 00:07 98.4 F 72 20 141/73 94 L 10/25/24 19:16 98.3 F 99 18 146/96 94 L 10/25/24 16:00 98.1 F 114 H 20 165/99 97 10/25/24 15:48 102 H 16 162/100 97 10/25/24 15:18 98.4 F 97 17 152/95 94 L 10/25/24 12:29 97.8 F 111 H 20 153/101 96 Intake and Output 10/25/24 10/26/24 10/26/24 22:59 06:59 14:59 Intake Total 240 Balance 240 Intake: Oral 240 Other: Voiding Method Toilet # Voids 5 Weight 113.398 kg PHYSICAL EXAM: VITAL SIGNS: [As above] GENERAL: Alert and oriented x 3, sitting up in bed, CIWA 3 HEENT: Normocephalic, atraumatic conjunctivae normal. eyes normal. No scleral icterus NECK: Supple, no JVD. No thyroid enlargement. No LNs CARDIOVASCULAR: S1, S2 regular.. No murmur RESPIRATION: Unlabored, equal air entry ,breath sounds diminished in the bases. No rhonchi or crackles. No bronchial breathing. ABDOMEN: Soft, nondistended, nontender . No guarding. no masses palpable. No ascites, No hepatosplenomegaly.Bowel sounds heard. LEGS: No edema. no swelling PSYCHIATRY: Alert and oriented X3, mood and affect normal. NERVOUS SYSTEM: Cranial N 2-12 grossly normal. Positive tremors , positive f lap test, no focal deficits. Strength and sensation grossly intact. Skin: Warm and dry, no rash. Results CBC & Chem 7: 10/25/24 12:54 10/25/24 12:54 Labs: Abnormal Lab Results - Last 24 Hours (Table) 10/25/24 10/25/24 Range/Units 12:54 13:15 Chloride 108 H (98-107) mmol/L Carbon Dioxide 18 L (22-30) mmol/L Creatinine 0.60 L (0.66-1.25) mg/dL Glucose 112 H (74-99) mg/dL U Benzodiazepines Scrn Detected H (NotDetected) Thrombosis Risk Factor Assmnt - Choose All That Apply Any of the Below Risk Factors Present?: Yes Each Factor Represents 1 point: Age 41-60 years Other Risk Factors: No Thrombosis Risk Factor Assessment Total Risk Factor Score: 1 Thrombosis Risk Factor Assessment Level: Low Risk Assessment and Plan Assessment: Alcohol withdrawal Alcohol abuse Morbid obesity, BMI 33 Gastroesophageal reflux disease Hypertension Former nicotine dependence PE reports 5 years ago secondary to right leg trauma with reported genetic testing; 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 WA protocol. Maintain IV fluid hydration. Alcohol abstinence reinforced. DC pending CIWA score less than 5 in a stable condition with guarded prognosis. Discharge Medication List Levothyroxine Sodium [Synthroid] 75 mcg PO DAILY 02/12/24 [History] Pantoprazole Sodium [Protonix] 40 mg PO DAILY 02/12/24 [History] Rivaroxaban [Xarelto] 20 mg PO DAILY 02/12/24 [History] lisinopriL [Zestril] 10 mg PO DAILY 02/12/24 [History] Vilazodone HCl [Viibryd] 20 mg PO DAILY 07/10/24 [History] busPIRone HCl [Buspar] 10 mg PO TID PRN 07/10/24 [History] Folic Acid 1 mg PO DAILY tab 10/26/24 [Rx] Multivitamins, Thera [Multivitamin (formulary)] 1 each PO DAILY tab 10/26/24 [Rx] Thiamine [Vitamin B-1] 100 mg PO DAILY tab 10/26/24 [Rx] The impression and plan of care has been dictated as directed. : I performed a history and examination of this patient, discussed the same with the dictator. I agree with the dictator's note ,documented as a scribe. Any additional findings or plans will be noted.
== END 2024-10-26 15:44 | disposition home or self-care (01) ==
LOC: EC 11:35 → 4SSUR 14:27
PROVIDERS: ADMIT Family Medicine; ATTEND Family Medicine
DX: F10.139 Alcohol abuse with withdrawal, unspecified (principal); E66.01 Morbid (severe) obesity due to excess calories; E78.5 Hyperlipidemia, unspecified; F41.9 Anxiety disorder, unspecified; I10 Essential (primary) hypertension; K21.9 Gastro-esophageal reflux disease without esophagitis; E07.9 Disorder of thyroid, unspecified; Z68.33 Body mass index [BMI] 33.0-33.9, adult; Z79.01 Long term (current) use of anticoagulants; Z79.890 Hormone replacement therapy; Z79.899 Other long term (current) drug therapy; Z87.891 Personal history of nicotine dependence
CPT/HCPCS: 96376 ×3; 96361 ×3; 96375 ×2; 96372; 96374; 99285; 36415; 93005; 80053; 83735; 84100; 85025; 85610; 80306; G0378 ×2; G0480; J2060 ×2; J0780; J3411; J2405; J2470; 80320

== ENCOUNTER 2025-05-28 12:40 | Emergency (ER) | payer OTHER ==
--- NOTE | 2025-05-28 14:11 | ED ---
General Adult HPI - General Chief complaint: Recheck/Abnormal Lab/Rx Stated complaint: ETOH withdrawal Time Seen by Provider: 05/28/25 12:55 Source: patient, RN notes reviewed Mode of arrival: ambulatory Limitations: no limitations - History of Present Illness Initial comments: 49-year-old male presents emergency department chief complaint of alcohol wit hdrawal. Patient states that he has been drinking 3 bottles of wine at night states that he is trying to stop states that his last drink was last night admits severe shakes, nausea vomiting. Patient states that he was sober prior to this for several months. Patient denies paresthesias no abdominal pain. Patient denies chills chest pain shortness of breath - Related Data Home Medications Medication Instructions Recorded Confirmed Levothyroxine Sodium [Synthroid] 75 mcg PO AC-[id number] 02/12/24 05/28/25 Pantoprazole Sodium [Protonix] 40 mg PO DAILY 02/12/24 05/28/25 Rivaroxaban [Xarelto] 20 mg PO DAILY 02/12/24 05/28/25 Vilazodone HCl [Viibryd] 20 mg PO DAILY 07/10/24 05/28/25 busPIRone HCl [Buspar] 10 mg PO TID 07/10/24 05/28/25 Sildenafil [Revatio] 60 - 100 mg PO DAILY PRN 05/28/25 05/28/25 busPIRone HCl [Buspar] 5 mg PO DAILY PRN 05/28/25 05/28/25 lisinopriL [Zestril] 20 mg PO DAILY 05/28/25 05/28/25 Previous Rx's Medication Instructions Recorded chlordiazePOXIDE HCl [Librium] 25 mg PO QID #20 capsule 05/28/25 Allergies Allergy/AdvReac Type Severity Reaction Status Date / Time No Known Allergies Allergy Verified 05/28/25 15:04 Review of Systems ROS Statement: Those systems with pertinent positive or pertinent negative responses have been documented in the HPI. ROS Other: All systems not noted in ROS Statement are negative. Past Medical History Past Medical History: GERD/Reflux, Hyperlipidemia, Hypertension, Thyroid Disorder History of Any Multi-Drug Resistant Organisms: None Reported Past Surgical History: No Surgical Hx Reported Past Psychological History: Anxiety Smoking Status: Former smoker Past Alcohol Use History: Abuse, Daily, Heavy Past Drug Use History: None Reported General Exam Limitations: no limitations General appearance: alert, in no apparent distress Head exam: Present: atraumatic, normocephalic, normal inspection Eye exam: Present: normal appearance, PERRL, EOMI. Absent: scleral icterus, conjunctival injection, periorbital swelling ENT exam: Present: normal exam, normal oropharynx, mucous membranes moist Neck exam: Present: normal inspection, full ROM. Absent: tenderness, meningismus, lymphadenopathy Respiratory exam: Present: normal lung sounds bilaterally. Absent: respiratory distress, wheezes, rales, rhonchi, stridor Cardiovascular Exam: Present: normal rhythm, tachycardia, normal heart sounds. Absent: systolic murmur, diastolic murmur, rubs, gallop, clicks GI/Abdominal exam: Present: soft, normal bowel sounds. Absent: distended, tenderness, guarding, rebound, rigid Course Vital Signs 05/28/25 05/28/25 12:46 16:10 Temperature 97.7 F 98.0 F Pulse Rate 116 H 125 H Respiratory 20 18 Rate Blood Pressure 147/103 143/95 O2 Sat by Pulse 95 97 Oximetry Medical Decision Making - Medical Decision Making Was pt. sent in by a medical professional or institution (, PA, [employer], urgent care, hospital, or [facility]...) When possible be specific @ -No Did you speak to anyone other than the patient for history (EMS, parent, family, police, friend...)? What history was obtained from this source @ -No Did you review nursing and triage notes (agree or disagree)? Why? @ -I reviewed and agree with nursing and triage notes Were old charts reviewed (outside hosp., previous admission, EMS record, old EKG, old radiological studies, urgent care reports/EKG's, [facility] records)? Report findings @ -No old charts were reviewed Differential Diagnosis (chest pain, altered mental status, abdominal pain women, abdominal pain men, vaginal bleeding, weakness, fever, dyspnea, syncope, headache, dizziness, GI bleed, back pain, seizure, CVA, palpatations, mental health, musculoskeletal)? @ -Alcohol abuse alcohol intoxication, alcohol withdrawal EKG interpreted by me (3pts min.). @ -none X-rays interpreted by me (1pt min.). @ -None done CT interpreted by me (1pt min.). @ -None done U/S interpreted by me (1pt. min.). @ -None done What testing was considered but not performed or refused? (CT, X-rays, U/S, labs)? Why? @ -None What meds were considered but not given or refused? Why? @ -None Did you discuss the management of the patient with other professionals (professionals i.e. , PA, [employer], lab, RT, psych nurse, psychologist social, color worker, teacher, corporate ethics officer, geriatric case manager)? Give summary @ -No Was smoking cessation discussed for >3mins.? @ -No Was critical care preformed (if so, how long)? @ -No Were there social determinants of health that impacted care today? How? (Homelessness, low income, unemployed, alcoholism, drug addiction, transportation, low edu. Level, literacy, decrease access to med. care, group home, rehab)? @ -No Was there de-escalation of care discussed even if they declined (Discuss DNR or withdrawal of care, Hospice)? DNR status @ -No What co-morbidities impacted this encounter? (DM, HTN, Smoking, COPD, CAD, Cancer, CVA, ARF, Chemo, Hep., AIDS, mental health diagnosis, sleep apnea, morbid obesity)? @ -Alcohol abuse Was patient admitted / discharged? Hospital course, mention meds given and route, prescriptions, significant lab abnormalities, going to OR and other pertinent info. @ -Discharge patient is improved after Ativan. Patient has been only heavily drinking for the last week as a relapse. Patient does have mild withdrawal symptoms upon presentation. Improved after Ativan patient is discharged with Librium return parameters discussed. Undiagnosed new problem with uncertain prognosis? @ -No Drug Therapy requiring intensive monitoring for toxicity (Heparin, Nitro, Insulin, Cardizem)? @ -No Were any procedures done? @ -No Diagnosis/symptom? @ -Alcohol use disorder, alcohol withdrawal Acute, or Chronic, or Acute on Chronic? @ -Acute Uncomplicated (without systemic symptoms) or Complicated (systemic symptoms)? @ -Complicated Side effects of treatment? @ -No Exacerbation, Progression, or Severe Exacerbation? @ -No Poses a threat to life or bodily function? How? (Chest pain, USA, MA, pneumonia, PE, COPD, DKA, ARF, appy, cholecystitis, CVA, Diverticulitis, Homicidal, Suicidal, threat to staff... and all critical care pts) @ -No - Lab Data Result diagrams: 05/28/25 14:14 05/28/25 14:14 Lab Results 05/28/25 05/28/25 05/28/25 Range/Units 14:14 14:14 14:14 WBC 8.25 (4.50-10.00) 10*3/uL RBC 4.74 (4.40-5.60) 10*6/uL Hgb 13.1 (13.0-17.0) g/dL Hct 38.5 L (39.6-50.0) % MCV 81.2 (80.0-97.0) fL MCH 27.6 (27.0-32.0) pg MCHC 34.0 (32.0-37.0) g/dL Plt Count 393 (140-440) 10*3/uL MPV 9.6 (9.5-12.2) fL Immature Gran % (Auto) 0.2 % Neutrophils % 79.9 % Lymphocytes % 10.9 % Monocytes % 7.8 % Eosinophils % 0.2 % Basophils % 1.0 % Immature Gran # 0.02 (0.00-0.04) 10*3/uL Neutrophils # 6.59 (1.80-7.70) 10*3/uL Lymphocytes # 0.90 (0.90-5.00) 10*3/uL Monocytes # 0.64 (0.20-1.00) 10*3/uL Eosinophils # 0.02 L (0.04-0.35) 10*3/uL Basophils # 0.08 (0.00-0.10) 10*3/uL Sodium 138 (137-145) mmol/L Potassium 4.6 (3.5-5.1) mmol/L Chloride 104 (98-107) mmol/L Carbon Dioxide 22 (22-30) mmol/L Anion Gap 12 mmol/L BUN 16 (9-20) mg/dL Creatinine 0.57 L (0.66-1.25) mg/dL Est GFR (CKD-EPI)AfAm >90 (>60 ml/min/1.73 sqM) Est GFR (CKD-EPI)NonAf >90 (>60 ml/min/1.73 sqM) Glucose 115 H (74-99) mg/dL Plasma Lactic Acid Dino 1.5 (0.7-2.0) mmol/L Calcium 9.4 (8.4-10.2) mg/dL Magnesium 1.5 L (1.6-2.3) mg/dL Total Bilirubin 0.7 (0.2-1.3) mg/dL AST 48 (17-59) U/L ALT 48 (4-49) U/L Alkaline Phosphatase 110 (38-126) U/L Total Protein 7.9 (6.3-8.2) g/dL Albumin 4.9 (3.5-5.0) g/dL Lipase 95 (23-300) U/L Serum Alcohol <10 mg/dL Disposition Clinical Impression: Alcohol use, Alcohol withdrawal Disposition: HOME SELF-CARE Condition: Stable Instructions (If sedation given, give patient instructions): Alcohol Withdrawal (ED) Additional Instructions: Please return to the Emergency Department if symptoms worsen or any other concerns. Prescriptions: chlordiazePOXIDE HCl [Librium] 25 mg PO QID #20 capsule Is patient prescribed a controlled substance at d/c from ED?: Yes Referrals: Araceli Reno DO [Primary Care Provider] - 1-2 days Time of Disposition: 14:51
[2025-05-28] MEDS: SODIUM CHLORIDE 0.9% 1,000 ML IV SCH (14:20)
[2025-05-28 14:21] LABS: Basophils # (A) 0.08 10*3/uL (0.00-0.10); Basophils % (A) 1.0 %; Eosinophils # (A) 0.02 10*3/uL (0.04-0.35); Eosinophils % (A) 0.2 %; HCT 38.5 % (39.6-50.0); HGB 13.1 g/dL (13.0-17.0); Lymphocytes # (A) 0.90 10*3/uL (0.90-5.00); Lymphocytes % (A) 10.9 %; MCH 27.6 pg (27.0-32.0); MCHC 34.0 g/dL (32.0-37.0); MCV 81.2 fL (80.0-97.0); Monocytes # (A) 0.64 10*3/uL (0.20-1.00); Monocytes % (A) 7.8 %; Neutrophils # (A) 6.59 10*3/uL (1.80-7.70); Neutrophils % (A) 79.9 %; Platelet Count 393 10*3/uL (140-440); RBC 4.74 10*6/uL (4.40-5.60); RDW 15.1 % (11.5-14.5); WBC 8.25 10*3/uL (4.50-10.00)
[2025-05-28] MEDS: ONDANSETRON 4 MG/2 ML VIAL IVP STA (14:21)
[2025-05-28] MEDS: LORazepam 1 MG/0.5 ML VIAL IV STA ×2 (14:21→15:03)
[2025-05-28 14:32] LABS: ALT 48 U/L (4-49); AST 48 U/L (17-59); African American GFR (CKD) >90 (>60 ml/min/1.73 sqM); Albumin 4.9 g/dL (3.5-5.0); Alkaline Phosphatase 110 U/L (38-126); Anion Gap 12 mmol/L; Blood Urea Nitrogen 16 mg/dL (9-20); Calcium 9.4 mg/dL (8.4-10.2); Carbon Dioxide 22 mmol/L (22-30); Chloride 104 mmol/L (98-107); Glucose 115 mg/dL (74-99); Lipase 95 U/L (23-300); Magnesium 1.5 mg/dL (1.6-2.3); Non-African American GFR(CKD) >90 (>60 ml/min/1.73 sqM); Potassium 4.6 mmol/L (3.5-5.1); Sodium 138 mmol/L (137-145); Total Protein 7.9 g/dL (6.3-8.2)
[2025-05-28] MEDS: MAGNESIUM OXIDE 400 MG TAB PO STA (15:04)
[2025-05-28] MEDS: chlordiazePOXIDE 25 MG CAP PO STA (15:49)
[2025-05-28 16:11] VITALS: BP 143/95; PULSE 125; RESP 18; TEMP 98
== END 2025-05-28 16:12 | disposition home or self-care (01) ==
LOC: EC 12:40
DX: F10.939 Alcohol use, unspecified with withdrawal, unspecified (principal); Z87.891 Personal history of nicotine dependence; Y90.0 Blood alcohol level of less than 20 mg/100 ml
CPT/HCPCS: 36415; 80053; 83605; 83690; 83735; 85025; 99283; 96374; 96375; 96376; 96361; G0480; J2060; J2405; 80320